=== PATIENT | female | born 1970 | race Caucasian/White ===

== ENCOUNTER 2020-10-29 12:01 | Outpatient (CLI) | payer BC, MEDICAID, SELFPAY ==
[2020-10-29 12:24] LABS: Hemoglobin 12.7 g/dL (12.0-15.0); Mean Corpuscular HGB Conc 31.8 g/dL (32.0-36.0); Mean Corpuscular Hemoglobin 27.4 pg (27.0-31.0); Mean Corpuscular Volume 86.2 fL (78.0-102.0); Mean Platelet Volume 9.9 fl (9.2-11.8); Platelet Count Result 328 K/mm3 (150-420); Red Blood Count 4.64 M/mm3 (4.20-5.40); Red Cell Distribution Width 13.8 % (11.6-14.4); White Blood Count 10.7 K/mm3 (4.8-10.8)
[2020-10-29 13:25] LABS: Alanine Aminotransferase 34 U/L (14-59); Albumin Level 3.6 g/dL (3.4-5.0); Alkaline Phosphatase 142 U/L (46-116); Anion Gap 12 mmol/L (8-16); Aspartate Amino Transferase 19 U/L (15-37); Bilirubin,Total 0.3 mg/dL (0.00-1.00); Blood Urea Nitrogen 18 mg/dL (7-18); Calcium 9.6 mg/dL (8.5-10.1); Carbon Dioxide 26 mmol/L (21-32); Chloride 105 mmol/L (98-108); Cholesterol 169 mg/dL (0-200); Estimated Glomerular Filt Rate > 60; Glucose 159 mg/dL (70-99); HDL Direct 74 mg/dL (40-60); LDL Cholesterol Calculated 82 mg/dL (<130); Osmolality Calculated 300 mOsm/kg (285-295); Potassium 4.4 mmol/L (3.5-5.1); Sodium 143 mmol/L (136-145); Total Protein 6.6 g/dL (6.4-8.2); Triglycerides 66 mg/dL (0-150)
[2020-10-29 13:31] LABS: Thyroid Stimulating Hormone Reflex 0.56 u/IU/mL (0.36-3.74)
== END 2020-10-29 12:02 | disposition home or self-care (01) ==
LOC: CHSLAB 12:09
PROVIDERS: PCP Family Medicine; Visit Provider Family Medicine
DX: E11.9 Type 2 diabetes mellitus without complications (principal); I10 Essential (primary) hypertension
CPT/HCPCS: 36415; 80053; 80061; 84443; 85027

== ENCOUNTER 2020-11-15 07:18 | Outpatient (CLI) | payer BC, MEDICAID, SELFPAY | END 2020-11-15 07:19 | disposition home or self-care (01) | LOC: CHSLAB 07:21 | PROVIDERS: PCP Family Medicine; Visit Provider Family Medicine | DX: E27.1 Primary adrenocortical insufficiency (principal) | CPT/HCPCS: 36415; 82533 ==

== ENCOUNTER 2020-12-05 10:08 | Outpatient (CLI) | payer BC, MEDICAID, SELFPAY ==
--- NOTE | ~2020-12-05 | XR_ITS ---
XR knee RT 3V 12/05/2020 10:31 Indication: Right knee pain after fall Procedure: 3 views right knee Comparison: 05/17/2007. Findings: Severe osteoarthritis of the right knee. No fracture, subluxation or dislocation. Small ann nt effusion. No acute fracture. Impression: 1: Severe osteoarthritis of the right knee. Reviewed, dictated and finalized at location A. Impression: 1: Severe osteoarthritis of the right knee.
== END 2020-12-05 10:09 | disposition home or self-care (01) ==
LOC: CHSLAB 10:11
PROVIDERS: PCP Family Medicine; Visit Provider Nurse Practitioner Family
DX: M25.561 Pain in right knee (principal)
CPT/HCPCS: 73562

== ENCOUNTER 2020-12-10 14:58 | Outpatient (CLI) | payer BC, MEDICAID, SELFPAY ==
--- NOTE | ~2020-12-10 | US_ITS ---
EXAMINATION: US venous doppler LE RT DATE: 12/10/2020 15:30 INDICATION: Right calf pain. TECHNIQUE: Grayscale ultrasound images without and with compression and Doppler ultrasound images of the right lower extremity veins were obtained. COMPARISON: None. FINDINGS: The visualized portions of right common femoral vein, profunda (deep) femoral vein, femoral vein, pop liteal vein, peroneal veins, posterior tibial veins, and greater saphenous vein outflow are patent. IMPRESSION: 1. No deep venous thrombosis. Reviewed, dictated and finalized at location A.
[2020-12-10 15:37] LABS: Hemoglobin A1C 8.1 % (<5.7)
== END 2020-12-10 14:59 | disposition home or self-care (01) ==
LOC: CHSLAB 15:02
PROVIDERS: PCP Family Medicine; Visit Provider Family Medicine
DX: E11.9 Type 2 diabetes mellitus without complications (principal)
CPT/HCPCS: 36415; 83036; 93971

== ENCOUNTER 2021-01-23 07:54 | Outpatient (CLI) | payer BC, MEDICAID, SELFPAY ==
--- NOTE | 2021-01-23 08:01 | ECG_ITS ---
Measurements Intervals [place] Rate: 76 P: 52 RI: 157 QRS: -7 QRSD: 92 T: 54 QT: 360 QTc: 407 Interpretive Statements SINUS RHYTHM VOLTAGE CRITERIA FOR LVH POOR R WAVE PROGRESSION, ANTERIOR LEADS BASELINE WANDER- II, III, AVR, AVL, AVF BORDERLINE ECG Electronically Signed On 01-23-2021 8:20:57 CDT by Ernie Bonilla D.O.
== END 2021-01-23 07:55 | disposition home or self-care (01) ==
PROVIDERS: PCP Family Medicine; Visit Provider Otolaryngology
DX: E78.5 Hyperlipidemia, unspecified (principal); I10 Essential (primary) hypertension
CPT/HCPCS: 93005

== ENCOUNTER 2021-01-25 00:33 | Day surgery (SDC) | payer BC, MEDICAID, SELFPAY ==
[2021-01-18 09:43] VITALS: BMI 57.8
--- NOTE | 2021-01-23 16:36 | PM.IMHP ---
H&P: HPI History of Present Illness Date/Time: 01/23/21 16:36 patient presents for planned surgical procedure no changes in symptoms no change in history Chief Complaint: septal deviation inferior turbinate hypertrophy nasal obstruction nasal congestion left maxillary sinusitis left anterior ethmoidal sinusitis right joseline bullosa Review of Systems Constitutional: Constitutional: Denies fatigue, Denies fever(s) and Denies lethargy Eyes: Eyes: Denies blurry vision and Denies change in vision ENT: Reports as per HPI Cardiovascular: Cardiovascular: Denies chest pain Respiratory: Respiratory: Denies cough Endocrine: Endocrine: Denies fatigue Hematologic/Lymphatic: Hematologic/Lymphatic: Denies easy bleeding, Denies easy bruising and Denies lymphadenopathy Allergic/Immunologic: Allergic/Immunologic: Denies seasonal rhinorrhea [facility] Surgical History Surgical History (Updated 12/10/20 @ 15:03 by Yandy Simpson) H/O knee surgery right History of bariatric surgery Gastric sleeve Social History Social History Years smoked: 1 Smoking status: Former smoker Smoking end date: 04/20/98 Alcohol intake: current Alcohol use details: RARE Substance use: never Substance use type: does not use Spiritual care concerns: No Meds Home Medications and Allergies Home Medications Medication Instructions Recorded Confirmed Type albuterol sulfate 90 mcg/actuation 1 puff INHALATION Q4H PRN 10/29/20 01/18/21 History aerosol inhaler baclofen 10 mg tablet 20 mg PO QID PRN tablet 10/29/20 01/18/21 History erenumab-aooe 140 mg/mL 140 mg SUBCUT MONTHLY 10/29/20 01/18/21 History subcutaneous auto-injector hydrocodone 5 mg-acetaminophen 325 1 tablet PO Q6H PRN 10/29/20 01/18/21 History mg tablet lemborexant 5 mg tablet 5 mg PO QHS 10/29/20 01/18/21 History losartan 25 mg tablet 25 mg PO DAILY 10/29/20 01/18/21 History montelukast 10 mg tablet 10 mg PO HS 10/29/20 01/18/21 History omeprazole 40 mg capsule,delayed 40 mg PO HS 10/29/20 01/18/21 History release simvastatin 10 mg tablet 10 mg PO HS 10/29/20 01/18/21 History sumatriptan succinate 4 mg/0.5 mL 4 mg SUBCUT ONCE PRN 10/29/20 01/18/21 History subcutaneous pen injector theophylline 400 mg 200 mg PO BID tablet 10/29/20 01/18/21 History tablet,extended release 24 hr tramadol 50 mg tablet 50 mg PO QID PRN tablet 10/29/20 01/18/21 History fludrocortisone 0.1 mg tablet 0.05 mg PO DAILY #90 tablet 11/20/20 01/18/21 Rx levothyroxine 50 mcg tablet 50 mcg PO DAILY #90 tablet 11/20/20 01/18/21 Rx hydrocortisone 10 mg tablet See Rx Instructions .ROUTE 12/20/20 01/18/21 Rx .COMPLEX #90 tablet aspirin-caffeine [Brie Back and 2 tablet PO Q6H PRN 01/18/21 01/18/21 History Body] ergocalciferol (vitamin D2) 10 mcg PO DAILY 01/18/21 01/18/21 History [Vitamin D2] potassium chloride 10 meq PO BID 01/18/21 01/18/21 History pregabalin [Lyrica] 150 mg PO BID 01/18/21 01/18/21 History ubrogepant [Ubrelvy] 50 mg PO ONCE PRN 01/18/21 01/18/21 History venlafaxine 300 mg PO DAILY 01/18/21 01/18/21 History Allergies Allergy/AdvReac Type Severity Reaction Status Date / Time cefuroxime [From Ceftin] Allergy Severe Anaphylaxis Verified 01/18/21 09:34 metformin AdvReac Diarrhea Verified 01/18/21 09:34 Exam Const: General: cooperative, healthy appearing, comfortable, well developed and alert HENMT: Head: normal to inspection, normocephalic and atraumatic Ears: hearing grossly normal bilaterally, external ears normal, TM's normal bilaterally and EAC's normal General nose exam: Normal external nose present, Normal nares present, No nasal polyps present, mucous membranes and turbinates abnormal, abnormal septum and Other nasal findings present ( septal deviation inferior turbinate hypertrophy) Face and sinus: normal facial exam Mouth: Yes Normal oral and palatal mucosa present, Yes lip normal, Ye
[2021-01-25] VITALS (11 sets, daily range): BP systolic 138–204; BP diastolic 71–119; PULSE 70–102; RESP 15–20; TEMP 35.9–37.1; O2SAT 91–99
--- NOTE | 2021-01-25 07:06 | WPDHPUPDATE1 ---
History and Physical Update Update Date/Time: 01/25/21 07:06 History and Physical has been reviewed, including an updated exam of the patient. There are NO changes in the patient's condition. Risks, benefits, and alternatives have been discussed and questions answered. Patient agrees to proceed with procedure.
[2021-01-25] MEDS: ACETAMINOPHEN 500 MG TABLET 1000 MG PO (09:12)
[2021-01-25] MEDS: LACTATED RINGERS 1,000 ML 30 ML IV CONT (09:20)
--- NOTE | 2021-01-25 09:43 | WPDANESEPPF ---
Anes - Initial Pre Proc Eval Procedure: Operation Date: 01/25/21 10:30 Proposed Procedures p Image Guided Left Maxillary Antrostomy, Anterior Ethmoidectomy, Bilateral Inferior Turbinectomy with Outfracture, Resection Right Side Olinda Bullosa, - Stephan Gomez MD s Endoscopic Septoplasty - Stephan Gomez MD Date/Time: 01/25/21 09:43 Surgeon: Stephan Gomez MD Pre Op Diagnosis: chronic sinusitis Patient Data Age: 50 Gender: F Height: 1.57 m Weight: 151.4 kg Last Vital Signs Temp 35.9 C L 01/25/21 08:48 Pulse 88 01/25/21 09:00 Resp 20 01/25/21 08:48 BP 165/94 H 01/25/21 09:00 Pulse Ox 99 01/25/21 08:48 Allergies Allergy/AdvReac Type Severity Reaction Status Date / Time cefuroxime [From Ceftin] Allergy Severe Anaphylaxis Verified 01/25/21 09:00 metformin AdvReac Intermediate Diarrhea/Cr Verified 01/25/21 09:00 amping/Naus ea Home Medications Medication Instructions Recorded Confirmed Type albuterol sulfate 90 mcg/actuation 1 puff INHALATION Q4H PRN 10/29/20 01/25/21 History aerosol inhaler baclofen 10 mg tablet 20 mg PO QID PRN tablet 10/29/20 01/25/21 History erenumab-aooe 140 mg/mL 140 mg SUBCUT MONTHLY 10/29/20 01/25/21 History subcutaneous auto-injector hydrocodone 5 mg-acetaminophen 325 1 tablet PO Q6H PRN 10/29/20 01/25/21 History mg tablet lemborexant 5 mg tablet 5 mg PO QHS 10/29/20 01/25/21 History losartan 25 mg tablet 25 mg PO DAILY 10/29/20 01/25/21 History montelukast 10 mg tablet 10 mg PO HS 10/29/20 01/25/21 History omeprazole 40 mg capsule,delayed 40 mg PO HS 10/29/20 01/25/21 History release simvastatin 10 mg tablet 10 mg PO HS 10/29/20 01/25/21 History sumatriptan succinate 4 mg/0.5 mL 4 mg SUBCUT ONCE PRN 10/29/20 01/18/21 History subcutaneous pen injector theophylline 400 mg 200 mg PO BID tablet 10/29/20 01/25/21 History tablet,extended release 24 hr tramadol 50 mg tablet 50 mg PO QID PRN tablet 10/29/20 01/25/21 History fludrocortisone 0.1 mg tablet 0.05 mg PO DAILY #90 tablet 11/20/20 01/25/21 Rx levothyroxine 50 mcg tablet 50 mcg PO DAILY #90 tablet 11/20/20 01/25/21 Rx hydrocortisone 10 mg tablet See Rx Instructions .ROUTE 12/20/20 01/25/21 Rx .COMPLEX #90 tablet aspirin-caffeine [Brie Back and 2 tablet PO Q6H PRN 01/18/21 01/18/21 History Body] ergocalciferol (vitamin D2) 10 mcg PO DAILY 01/18/21 01/25/21 History [Vitamin D2] potassium chloride 10 meq PO BID 01/18/21 01/25/21 History pregabalin [Lyrica] 150 mg PO BID 01/18/21 01/25/21 History ubrogepant [Ubrelvy] 50 mg PO ONCE PRN 01/18/21 01/18/21 History venlafaxine 300 mg PO DAILY 01/18/21 01/25/21 History Patient hx anesthesia problems: none Family hx anesthesia problems: none Results Review: All pre-operative results and documents have been reviewed as part of the pre-operative evaluation. [facility] Past Medical History Medical History (Updated 01/25/21 @ 09:43 by Flaco Escalera MD) [place]'s disease Asthma Chronic back pain Hypertension Hypothyroidism MDD (major depressive disorder) Migraine headache Surgical History Surgical History H/O knee surgery right History of bariatric surgery Gastric sleeve Social History Social History Years smoked: 1 Smoking status: Never smoker Smoking end date: 04/20/98 Alcohol intake: current Alcohol use details: RARE Substance use: never Substance use type: does not use Living arrangements: with family Spiritual care concerns: No Anes - Eval Final PreProcedure Day of Procedure 01/25/21 09:43 Patient weight: super morbidly obese Heart: regular rate and rhythm Lungs: decreased breath sounds Airway: Mallampati scale class II Neurological: alert and oriented Last oral intake: >/= 8 hours ASA classification: III Emergent: no Anesthetic plan: proceed Anesthesia type and monit
[2021-01-25] MEDS: CLINDAMYCIN 900 MG/D5W 50 ML 900 MG/50 ML PIGGYBACK 50 MG IVPB (11:09)
[2021-01-25] MEDS: OXYMETAZOLINE HCL 0.05% NAS 15 ML BTL (*BKC) 1 SPRAY NASAL (11:43)
[2021-01-25] MEDS: LIDO 1%/EPINEPHRINE 1:100,000 50 ML VIAL INFILTRATE (12:25)
--- NOTE | 2021-01-25 12:48 | P.OP_ITS ---
Procedure Note - Detailed Date of Procedure 01/25/21 Pre-op Diagnosis chronic sinusitis, nasal obstruction, nasal congestion, inferior turbinate hypertrophy, septal deviation, right joseline bullosa Post-op Diagnosis same Procedure Performed 1. Endoscopic assisted septoplasty 2. Inferior turbinate submucosal resection with outfracture 3. Left-sided maxillary antrostomy 4. Left-sided anterior ethmoidectomy 5. Right-sided joseline bullosa resection Surgeon Stephan Gomez MD [employer] Intern None Anesthesia general Indications See above Findings Septal deviation, inferior turbinate hypertrophy, right joseline bullosa, left sinuses appeared healthy Description of Procedure The patient was correctly identified and consent was verified in the preoperative holding area. The patient was brought to the operating room and a time-out performed. General anesthesia was induced and endotracheal tube was secured the patient's airway and taped the left lower lip. After the patient was then prepped and draped for the aforementioned procedures. Second time-out performed. Afrin-soaked pledgets were inserted the bilateral nasal passages allowed to sit for 5 minutes. They were then removed. 0 degree endoscope set up. Under endoscopic guidance the bilateral nasal passages reviewed with the aforementioned findings noted. Total 14 cc of 1% lidocaine with 1 100,000 parts epinephrine was injected into the septum in the submucoperichondrial plane, the anterior heads of the inferior turbinates, and the right middle turbinate. Right middle turbinate split in half using a sickle blade the lateral aspect of the joseline was then removed using a combination of microdebrider and straight through cut hemostasis was achieved using Bovie suction electrocautery at a setting of 12. Margarito incision made in the left anterior septum sub mucoperichondrial flap was elevated using a 7 [place] suction perforation noted with no loss of tissue over the septal spur the septum was then crossed using a 15 blade right-sided mucoperichondrial flap was elevated with no perforation. Deviated septum moved combination of Kevon Grady forceps deep blade and Mary forceps. No opposing perforations were noted. The left middle turbinate was then medialized using a [place]. A ball-tip probe placed in the accessory os and used to create a small opening the left maxillary sinus. Maxillary antrostomy completed with microdebrider backbiter and straight through cut. Anterior ethmoidectomy was completed using a [place] and microdebrider. Hemostasis was achieved using intermittent application of Afrin-soaked pledgets. The inferior turbinates were then entered anteriorly using a microdebrider with 2 mm blade. There debrided the submucoperichondrial plane. There were then outfractured using a [place] elevator. Again this was performed bilaterally. [place] tips bilaterally were cauterized using Bovie suction electrocautery at a setting of 12. The bilateral nasal passages were then again examined with no complications noted there were suction to the posterior choana hemostasis was excellent. The Seibert incision was closed using 3 interrupted 5 0 fast gut sutures. Prado splints were then placed and sutured anteriorly using a 3-0 mattressed nylon suture. Total blood loss 20 cc. I performed all dictated portions of the procedure. There were no complications. Care of the patient was turned over to Anesthesiology. Implants Prado splints Estimated Blood Loss 20 Drains No Packing No Pathology none sent Complications No immediate complications Condition stable Disposition PACU
[2021-01-25] MEDS: LABETALOL HCL INJ 100 MG/20 ML VIAL IV PUSH ×2 (12:59→13:26)
[2021-01-25] MEDS: hydrALAZINE HCL 20 MG/ML VIAL 10 MG IV PUSH (13:28)
[2021-01-25] MEDS: oxyCODONE HCL (*CRX) 5 MG TAB IR PO (14:34)
== END 2021-01-25 15:10 | disposition home or self-care (01) ==
PROVIDERS: PCP Family Medicine; Visit Provider Otolaryngology
PROC: (CPT 30520; principal; 2021-01-25 10:30)
PROC: (CPT 30520; 2021-01-25 10:30)
DX: J34.3 Hypertrophy of nasal turbinates (principal); J34.2 Deviated nasal septum; J34.89 Other specified disorders of nose and nasal sinuses; J32.9 Chronic sinusitis, unspecified; R44.8 Other symptoms and signs involving general sensations and perceptions; R51.9 Headache, unspecified; R09.82 Postnasal drip; E03.9 Hypothyroidism, unspecified; Z79.82 Long term (current) use of aspirin; Z79.51 Long term (current) use of inhaled steroids; E27.1 Primary adrenocortical insufficiency; J45.909 Unspecified asthma, uncomplicated; I10 Essential (primary) hypertension; F32.9 Major depressive disorder, single episode, unspecified; E66.01 Morbid (severe) obesity due to excess calories; Z68.44 Body mass index [BMI] 60.0-69.9, adult
CPT/HCPCS: 30520; 30140; 31256; 61782; 31200; 31240; A9270; J0330; J0360; J1100; J2250; J2405; J2704; J3010; J7120

== ENCOUNTER 2021-07-02 09:09 | Outpatient (CLI) | payer BC, SELFPAY ==
--- NOTE | 2021-07-05 12:18 | WPDHOLTEREM ---
Holter/Event Monitor Holter/Event Monitor Date of procedure: 07/02/21 Holter/Event Procedure: 48 Hr Holter Monitor Indications: Tachycardia Conclusion: 1. 48 hour holter monitor on 07/02/21. 2. Underlying rhythm is sinus rhythm. HR range 65-143 bpm; average HR 96 bpm. 3. There are 29 premature supraventricular complexes and 1 supraventricular couplet. No supraventricular tachycardia. 4. There are 2 premature ventricular complexes. No ventricular tachycardia. 5. No sinoatrial or atrioventricular blocks. No significant pauses greater than 2 seconds. 6. Patient reports symptoms of being upset and back pain which demonstrate sinus rhythm, HR range 98-130 bpm.
== END 2021-07-02 09:10 | disposition home or self-care (01) ==
LOC: CHSCARD 09:12
PROVIDERS: PCP Family Medicine; Visit Provider Family Medicine
DX: R00.0 Tachycardia, unspecified (principal)
CPT/HCPCS: 93225; 93226

== ENCOUNTER 2022-10-22 15:00 | Outpatient (CLI) | payer BC, SELFPAY ==
[2022-10-22 15:13] LABS: Basophils Absolute Auto 0.07 K/mm3 (0.00-0.10); Basophils Percent Auto 0.7 % (0.0-1.0); Eosinophils Absolute Auto 0.34 K/mm3 (0.02-0.50); Eosinophils Percent Auto 3.6 % (1.0-6.0); Hematocrit 41.5 % (35.0-49.0); Hemoglobin 12.6 g/dL (12.0-15.0); Immature Granulocyte Absolute 0.01 K/mm3 (0.00-0.00); Immature Granulocyte Percent A 0.1 % (0.0-0.0); Lymphocytes Absolute Auto 3.24 K/mm3 (1.10-4.50); Lymphocytes Percent Auto 34.5 % (18.0-42.0); Mean Corpuscular HGB Conc 30.4 g/dL (32.0-36.0); Mean Corpuscular Hemoglobin 28.6 pg (27.0-31.0); Mean Corpuscular Volume 94.3 fL (78.0-102.0); Mean Platelet Volume 10.6 fl (9.2-11.8); Monocytes Absolute Auto 0.77 K/mm3 (0.10-0.90); Monocytes Percent Auto 8.2 % (2.0-11.0); Neutrophils Percent Auto 52.9 % (50.0-70.0); Platelet Count Result 287 K/mm3 (150-420); White Blood Count 9.4 K/mm3 (4.8-10.8)
== END 2022-10-22 15:01 | disposition home or self-care (01) ==
LOC: CHSLAB 15:02
PROVIDERS: PCP Family Medicine; Visit Provider Family Medicine
DX: I10 Essential (primary) hypertension (principal)
CPT/HCPCS: 36415; 85025

== ENCOUNTER → 2023-03-31 09:09 | Outpatient (CLI) | payer BC, SELFPAY ==
--- NOTE | ~2023-03-31 | CT_ITS ---
EXAMINATION: CT sinus wo con DATE: 03/31/2023 09:27 INDICATION: Chronic sinusitis TECHNIQUE: Computed tomography (CT) of the paranasal sinuses was performed without intravenous contra st. The dose-length product (DLP) was 382.89 mGy-cm. Iterative reconstruction was used. COMPARISON: None FINDINGS: There is normal development and pneumatization of the paranasal sinuses. There are surgical changes in the medial de anda of the maxillary sinuses. The frontal, sphenoid, ethmoid, and maxillary sinuses are clear. The bilateral ostiomeatal complexes are patent. Visualized soft tissues are unrema rkable. IMPRESSION: 1. Postsurgical change, otherwise unremarkable paranasal sinuses. Reviewed, dictated and finalized at location L. LE [employer]ACHINE
== END ==
PROVIDERS: PCP Otolaryngology; Visit Provider Otolaryngology
DX: J32.9 Chronic sinusitis, unspecified (principal)
CPT/HCPCS: 70486

== ENCOUNTER 2023-11-12 07:09 | Outpatient (CLI) | payer BC, SELFPAY ==
[2023-11-12 07:34] LABS: Basophils Absolute Auto 0.09 K/mm3 (0.00-0.10); Basophils Percent Auto 0.9 % (0.0-1.0); Eosinophils Absolute Auto 0.32 K/mm3 (0.02-0.50); Eosinophils Percent Auto 3.4 % (1.0-6.0); Hematocrit 36.6 % (35.0-49.0); Immature Granulocyte Absolute 0.02 K/mm3 (0.00-0.00); Immature Granulocyte Percent A 0.2 % (0.0-0.0); Lymphocytes Absolute Auto 2.61 K/mm3 (1.10-4.50); Lymphocytes Percent Auto 27.5 % (18.0-42.0); Mean Corpuscular HGB Conc 32.8 g/dL (32-36); Mean Corpuscular Hemoglobin 28.7 pg (27.0-31.0); Mean Corpuscular Volume 87.6 fL (78.0-102.0); Mean Platelet Volume 10.1 fl (9.2-11.8); Monocytes Absolute Auto 0.62 K/mm3 (0.10-0.90); Monocytes Percent Auto 6.5 % (2.0-11.0); Neutrophils Absolute Auto 5.82 K/mm3 (1.70-7.20); Neutrophils Percent Auto 61.5 % (50.0-70.0); Platelet Count Result 340 K/mm3 (150-420); Red Blood Count 4.18 M/mm3 (4.20-5.40); Red Cell Distribution Width 13.4 % (11.6-14.4); White Blood Count 9.5 K/mm3 (4.8-10.8)
[2023-11-12 07:41] LABS: Creatinine Urine 258.82 mg/dL (40-278); MALB Creatinine Ratio 6.3 mg/g (0-30); Microalbumin Urine Random 16.5 mg/L
[2023-11-18 10:33] LABS: Vitamin D 1,25 (OH)2 Total 39 pg/mL (18-72); Vitamin D2 1,25 (OH)2 <8 pg/mL; Vitamin D3 1,25 (OH)2 39 pg/mL
[2023-11-23 18:24] LABS: Cortisol Random 9.3 mcg/dL
== END 2023-11-12 07:10 | disposition home or self-care (01) ==
LOC: CHSLAB 07:10
PROVIDERS: PCP Family Medicine; Visit Provider Family Medicine
DX: E11.9 Type 2 diabetes mellitus without complications (principal); I10 Essential (primary) hypertension; E27.1 Primary adrenocortical insufficiency
CPT/HCPCS: 36415; 82043; 82533; 82652; 83036; 85025

== ENCOUNTER 2023-11-30 07:24 | Outpatient (CLI) | payer BC, SELFPAY ==
[2023-11-30 07:37] LABS: Basophils Absolute Auto 0.08 K/mm3 (0.00-0.10); Basophils Percent Auto 0.8 % (0.0-1.0); Eosinophils Absolute Auto 0.32 K/mm3 (0.02-0.50); Eosinophils Percent Auto 3.1 % (1.0-6.0); Hematocrit 38.5 % (35.0-49.0); Hemoglobin 12.3 g/dL (12.0-15.0); Immature Granulocyte Absolute 0.04 K/mm3 (0.00-0.00); Immature Granulocyte Percent A 0.4 % (0.0-0.0); Lymphocytes Percent Auto 28.7 % (18.0-42.0); Mean Corpuscular HGB Conc 31.9 g/dL (32-36); Mean Corpuscular Hemoglobin 28.1 pg (27.0-31.0); Mean Corpuscular Volume 88.1 fL (78.0-102.0); Mean Platelet Volume 10.3 fl (9.2-11.8); Monocytes Absolute Auto 0.74 K/mm3 (0.10-0.90); Monocytes Percent Auto 7.1 % (2.0-11.0); Neutrophils Absolute Auto 6.28 K/mm3 (1.70-7.20); Neutrophils Percent Auto 59.9 % (50.0-70.0); Platelet Count Result 341 K/mm3 (150-420); Red Blood Count 4.37 M/mm3 (4.20-5.40); White Blood Count 10.5 K/mm3 (4.8-10.8)
[2023-11-30 08:25] LABS: Alanine Aminotransferase 21 U/L (14-59); Albumin Level 3.5 g/dL (3.4-5.0); Alkaline Phosphatase 140 U/L (46-116); Anion Gap 11 mmol/L (4-12); Aspartate Amino Transferase 18 U/L (15-37); Bilirubin,Total 0.4 mg/dL (0.00-1.00); Blood Urea Nitrogen 13 mg/dL (7-18); Carbon Dioxide 27 mmol/L (21-32); Chloride 103 mmol/L (98-108); Cholesterol 244 mg/dL (0-200); Estimated Glomerular Filt Rate > 60; Glucose 159 mg/dL (70-99); HDL Direct 56 mg/dL (40-60); LDL Cholesterol Calculated 157 mg/dL (<130); Osmolality Calculated 295 mOsm/kg (285-295); Potassium 3.7 mmol/L (3.5-5.1); Sodium 141 mmol/L (136-145); Total Protein 6.6 g/dL (6.4-8.2); Triglycerides 156 mg/dL (0-150)
[2023-11-30 08:26] LABS: Thyroid Stimulating Hormone Reflex 0.99 u/IU/mL (0.36-3.74)
[2023-12-02 06:03] LABS: Cortisol Random 14.2 mcg/dL
== END 2023-11-30 07:25 | disposition home or self-care (01) ==
LOC: CHSLAB 07:25
PROVIDERS: PCP Family Medicine; Visit Provider Family Medicine
DX: E03.9 Hypothyroidism, unspecified (principal); E27.1 Primary adrenocortical insufficiency; E11.9 Type 2 diabetes mellitus without complications; J45.909 Unspecified asthma, uncomplicated
CPT/HCPCS: 36415; 80053; 80061; 82533; 84443; 85025

== ENCOUNTER 2024-02-18 10:45 | Outpatient (CLI) | payer BC, SELFPAY ==
--- NOTE | ~2024-02-18 | XR_ITS ---
Right ankle Technique: AP, oblique, and lateral views were obtained. Clinical History: Pain Findings: No acute fracture or dislocation is seen. Probable small chronic avulsion fracture at the l ateral malleolar tip. Osseous alignment is anatomic. Ankle mortise and other visualized joint spaces are preserved. Soft tissues are otherwise unremarkable. Impression: No acute abnormality. Plantar calcaneal spur. Reviewed, dictated and finalized at location . Impression: No acute abnormality. Plantar calcaneal spur.
== END 2024-02-18 10:46 | disposition home or self-care (01) ==
PROVIDERS: PCP Family Medicine; Visit Provider Family Medicine
DX: M77.31 Calcaneal spur, right foot (principal); M25.571 Pain in right ankle and joints of right foot
CPT/HCPCS: 73610

== ENCOUNTER 2024-06-30 07:11 | Outpatient (CLI) | payer BC, SELFPAY ==
--- NOTE | ~2024-06-30 | XR_ITS ---
Clinical Indication: Preoperative evaluation PA and lateral views of the chest: Comparison: None Findings: The lungs are clear, without evidence of focal consolidation or pleural effusion. Cardiome diastinal silhouette is within normal limits. Bones and soft tissues are unremarkable, aside from int rathecal neurostimulator. Impression: Clear lungs. Reviewed, dictated and finalized at location . Impression: Clear lungs.
--- NOTE | 2024-06-30 07:25 | ECG_ITS ---
Test Date: 2024-06-30 08:02:42 Measurements Intervals [place] Rate: 64 P: 61 SD: 176 QRS: 36 QRSD: 89 T: 75 QT: 396 QTc: 411 Interpretive Statements SINUS RHYTHM WITH SINUS ARRHYTHMIA NONSPECIFIC T-WAVE ABNORMALITY No previous ECG available for comparison Electronically Signed On 07-01-2024 16:28:04 CDT by Radha Laboy M.D.
[2024-06-30 07:31] LABS: Hematocrit 38.2 % (35.0-49.0); Hemoglobin 12.1 g/dL (12.0-15.0); Mean Corpuscular HGB Conc 31.7 g/dL (32-36); Mean Corpuscular Hemoglobin 27.7 pg (27.0-31.0); Mean Corpuscular Volume 87.4 fL (78.0-102.0); Platelet Count Result 328 K/mm3 (150-420); Red Blood Count 4.37 M/mm3 (4.20-5.40); Red Cell Distribution Width 13.6 % (11.6-14.4); White Blood Count 10.9 K/mm3 (4.8-10.8)
[2024-06-30 07:46] LABS: INR 0.9; Prothrombin Time 10.3 Seconds (9.50-12.1)
[2024-06-30 07:50] LABS: Anion Gap 8 mmol/L (4-12); Blood Urea Nitrogen 23 mg/dL (7-18); Calcium 9.3 mg/dL (8.5-10.1); Carbon Dioxide 28 mmol/L (21-32); Chloride 107 mmol/L (98-108); Estimated Glomerular Filt Rate 57; Glucose 116 mg/dL (70-99); Osmolality Calculated 300 mOsm/kg (285-295); Sodium 143 mmol/L (136-145)
[2024-06-30 10:31] LABS: Hemoglobin A1C 6.8 % (<5.7)
[2024-06-30 12:58] LABS: Add Urine Microscopic? YES; Appearance Urine Clear (Clear); Bilirubin Urine Negative (Negative); Blood Urine Negative (Negative); Color Urine Yellow (Yellow); Glucose Urine UA Negative (Negative); Ketones Urine Negative (Negative); Leukocyte Esterase Ur Trace LEU/UL (Negative); Nitrate Urine Negative (Negative); Protein Urine Trace (Negative); Specific Grav Ur 1.025 (1.010-1.020)
[2024-06-30 13:05] LABS: Squamous Epithelial Cell Urine Few /hpf (Few)
[2024-06-30 13:06] LABS: Bacteria Urine Trace /hpf
== END 2024-06-30 07:12 | disposition home or self-care (01) ==
LOC: CHSLAB 07:12
PROVIDERS: PCP Family Medicine; Visit Provider Neurological Surgery
DX: Z01.818 Encounter for other preprocedural examination (principal); D68.9 Coagulation defect, unspecified; E11.9 Type 2 diabetes mellitus without complications; T85.122A Displacement of implanted electronic neurostimulator of spinal cord electrode (lead), initial encounter; I49.8 Other specified cardiac arrhythmias
CPT/HCPCS: 36415; 71046; 80048; 81001; 83036; 85027; 85610; 93005

== ENCOUNTER 2024-07-20 00:18 | Day surgery (SDC) | payer BC, SELFPAY ==
[2024-06-24 15:48] VITALS: BMI 53.5
--- NOTE | 2024-06-24 15:56 | PC.NURSE ---
Addendum entered by Zack Syed RN 07/11/24 10:35: Patient says no changes since preop interview except is finishing a course of anitbiotics and prednisone that she was given for chest and nasal congestion which was the reasong for rescheduling surgery. Informed patient she is now to be here at 1000 on 07-20-2024 for 1200 surgery. All other instructions are the same and patient acknowledges she has a copy of the instructions below. Original Note: Report to the Outpatient Waiting Room, entrance under the green pavilion located off [facility], at time _0830_ on date _[id number]_. Planned Procedure Time: _1030_.? Time changes happen often and if your time is changed the preop area will call you the afternoon before. - You and your visitor will be asked to self-screen and do not enter if you have any COVID symptoms. Please call surgeon if you need to reschedule. - A mask is optional within the hospital at this time. Patients may have clear liquids (water, carbonated beverages, clear teas, apple juice) until 3 hours prior to surgery with a maximum of 20 ounces. - No food from midnight until time of surgery and no smoking, or chewing tobacco (or any form of nicotine). No chewing gum, candy or mints. Take only the following medications with a SIP of water on the morning of surgery: ___Lyrica, Levothyroxine, Venlafaxine, Hydrocortizone and if needed inhalers and or Tramadol DO NOT STOP ANY OF YOUR OTHER PRESCRIPTION MEDICATIONS PRIOR TO SURGERY EXCEPT THE FOLLOWING Hold all vitamins and supplements for 3 days per anesthesiologist. Medications to discontinue per physician Date to take last dose Please no make-up, nail yoruba, hairspray, perfume, deodorant, or body powder the day of surgery.? No jewelry (including any body piercings) or valuables the day of surgery, leave them at home.? Please take a shower or bath the night before, or the morning of, surgery with an antibacterial soap.? Wear comfortable, loose fitting clothing.? - Jewelry must be removed prior to entering the operating room.? Rings and piercings that are not removed may be cut off. - The hospital will not accept responsibility for valuables.? - Please leave all valuables, including medications, at home the day of surgery. If you are going home after surgery, a licensed bus driver supervisor must drive you home.? - NO public transportation without another adult if you receive anesthesia. - We recommend that an adult stay with you for 24 hours following discharge. - We also recommend that you do not drive, make important decision, drink alcoholic beverages, or take any drugs that were not prescribed by your health care provider for at least 24 hours after your discharge time. Follow any additional instructions given to you from your surgeon. Telephone instructions given to __Deborah__and asked if any additional questions and then verbalized understanding. Patient advised to call surgeon office or pre surgery nurse liaison [phone] if any additional questions.
--- OUTSIDE RECORDS SUMMARY | 2024-07-06 00:40 | XMS_ITS | Clinical Summary ---
Author Organization [facility] Address [facility] [place] [address] Care Team Providers Care Portfolio Manager Name Role Phone GangaAlfredo Primary Care Provider [phone] Allergies Active Allergy Reactions Criticality Noted Date Comments Cefdinir Anaphylaxis High 06/30/2019 Cefuroxime Unknown,Anaphylaxis, Anxiety,Blurred vision,Chest pressure,Diarrhea,Dizziness,Eyes Water & Itch,Headache,Nausea and Vomiting,Palpitations,Shakiness,Shortn ess of Breath,Swelling,Throat swelling High 01/27/2017 Clindamycin Hives,Itching,Rash Low 06/06/2022 Levofloxacin Rash Low 06/30/2019 Azithromycin Palpitations Low 08/25/2019 Medications traMADol 50 MG tabletIndicatio ns:Chronic Pain Take 1 tablet (50 mg total) by mouth every 6 (six) hours as needed. Indications: Chronic Pain 06/17/2019 Active montelukast 10 MG tablet Take 1 tablet (10 mg total) by mouth nightly at bedtime. 06/14/2019 Active levothyroxine 50 MCG tablet Take 1 tablet (50 mcg total) by mouth every morning. 06/14/2019 Active EPINEPHrine 0.3 MG/0.3ML injection Inject 0.3 mLs (0.3 mg total) into the muscle as needed. 4 09/06/2018 Active potassium chloride CR 10 MEQ tablet Take 1 tablet (10 mEq total) by mouth 2 (two) times daily. Active omeprazole 40 MG capsule Take 1 capsule (40 mg total) by mouth daily. 07/09/2019 Active venlafaxine XR 150 MG 24 hr capsule Take 1 capsule (150 mg total) by mouth 2 (two) times a day. 09/10/2019 Active Cholecalciferol (VITAMIN D3) 50 MCG (2000 UT) Tab Take 1 tablet (50 mcg total) by mouth 3 (three) times a day. Active hydrocortisone (CORTEF) 10 MG tablet Take 3 tablets (30 mg total) by mouth daily. 07/14/2022 Active fluticasone furoate-vilante rol (BREO ELLIPTA) 100-25 MCG/ACT inhaler Inhale 1 puff into the lungs daily. Active losartan-hydroC HLOROthiazide (HYZAAR) 50-12.5 MG tablet Take 0.5 tablets by mouth daily. 08/26/2022 Active cyclobenzaprine (FLEXERIL) 10 MG tablet 1 tablet (10 mg total). 09/07/2023 Active pregabalin (LYRICA) 150 MG capsule Take 1 capsule (150 mg total) by mouth daily. 11/10/2023 Active atorvastatin (LIPITOR) 40 MG tablet Take 1 tablet (40 mg total) by mouth daily. Active celecoxib (CELEBREX) 200 MG capsule Take 1 capsule (200 mg total) by mouth daily. Active TRULICITY 0.75 MG/0.5ML injection Inject 0.75 mg into the skin once a week. Active Active Problems Problem Noted Date Diagnosed Date Right shoulder pain 07/30/2022 Osteoarthritis of right glenohumeral joint 06/02 Traumatic hematoma of right knee, initial encoun ter 03/21/2022 Shoulder impingement 10/24/2021 Superficial incisional infection of surgical sit e 08/20/2021 Cubital tunnel syndrome on right 07/30/2021 Carpal tunnel syndrome, unspecified laterality 0 07/30/2021 Primary osteoarthritis of right knee 01/02/2021 Primary osteoarthritis of left knee 01/02/2021 Pneumonia 06/06/2020 Encounter for post surgical wound check 11/24/19 20 Dorsalgia 05/12/2019 Lumbar radiculopathy 05/12/2019 Encounters Date Type Department Care Team Description 04/15/2024 Telephone [facility] [address] [id number] Moisés Bone MD Refill Request (Faxed order for Celebrex) 2024 Orders Only [facility] [address] [facility] [address] [id number] Sarina Johansen, FEATHEREDGER AND REDUCER MACHINE- from Last 3 Months Family History Medical History Relation Comments No Known Problems Brother 1 No Known Problems Brother 2 Stroke Father Heart Attack Maternal Grandfather Stroke Maternal Grandmother Diabetes Mother Heart Attack Mother Ovarian Cancer Mother Heart Paternal Grandfather Heart Attack Paternal Grandfather Hypertension Paternal Grandfather Cancer Paternal Grandmother Relation Status Comments Brother 1 Alive Brother 2 Alive Father Maternal Grandfather Maternal Grandmother Mother Paternal Grandfather Paternal Grandmother Social History Tobacco Use Types Packs/Day Years Used Date Smoking Tobacco: Former Cigarettes 0.3 2 2 000 - 2002 Smokeless Tobacco: Never Alcohol Use Standard Drinks/Week Comments Yes 0 (1 standard drink = 0.6 oz pur e alcohol) socially Comments No Sex and Gender Information Value Date Recorded Sex Assigned at Not on file Legal Sex Female 9:35 PM CDT Gender Identity Female 05/28/2021 5:00 AM ORAL SURGERY ASSISTANT Sexual Orientation Straight 04/30/2021 9: 48 AM ORAL SURGERY ASSISTANT Last Filed Vital Signs Vital Sign Reading Time Taken Comments Blood Pressure 126/90 10/16/2023 6:12 AM CDT Pulse 99 10/16/2023 6:12 AM CDT Temperature 37.8 C (100.1 F) 10/16/2023 6:12 AM CDT Respiratory Rate 18 10/16/2023 6:12 AM CDT Oxygen Saturation 97% 10/16/2023 6:12 AM CDT Inhaled Oxygen Concentration - - Weight 135.2 kg (298 lb) 02/03/2024 1:51 PM CDT Height 157.5 cm (5' 2 ) 02/03/2024 1:51 PM CDT Body Mass Index 54.5 02/03/2024 1:51 PM CDT Plan of Treatment Health Maintenance Due Date Last Done Comments Colorectal Cancer Screening Colonoscopy (10 Years) 1971 Annual Physical 1974 Hepatitis C 1989 Hepatitis B Vaccines (1 of 3 - 19+ 3-dose series) 1990 Cervical Cancer Screening Pa p with HPV Testing (Age 30 to 64) Every 5 Years 2001 Mammogram Screening 03/24/2021 03/24/2019 Zoster Vaccines (1 of 2) 2021 Cervical Cancer Screening Pa p Smear (Age 30 to 64) Every 3 Years 06/26/2023 06/25/2020 Cervical Cancer Screening wi th HPV 06/26/2023 COVID-19 Vaccine (1 - 2023-2 5 season) 2023 Influenza Adult (#1) 2024 12/30/2018, 02/17/2018, 05/08/2015 DTaP, Tdap and Td Vaccines ( 2 - Td or Tdap) 04/12/2026 04/12/2016, 01/18/2010 Pneumococcal Vaccine: Pediatrics (0 to 5 Years) and At-Risk Patients (6 to 64 Years) Aged Out 05/30/2014 No longer eligible b ased on patient's age to complete this topic Meningococcal B Vaccine Aged Out No l onger eligible based on patient's age to complete this topic Meningococcal Vaccine Aged Out No rick kelley eligible based on patient's age to complete this topic RSV Immunizations Under 20 Months Aged Out No longer eligible b ased on patient's age to complete this topic Medical Devices Implanted Type Area Hedis Registered Nurse Rn Device Identifier Shelf Expiration Date Model / Serial / Lot Stimulator Lead-07/04/2022 Implanted:Qty: 2 on 07/04/2022 Lead Implant Spine Thoracic [employer] C[employer] RHYTHM AND HEART FAILURE - DIV M [id number] / / Description:2 LEADS Stimulator Implant- [id number] Implanted:Qty: 1 on 07/04/2022 Stimulator Implant [employer] CARDI[employer] RHYTHM AND HEART FAILURE - DIV M [id number] / [id number] / Description:MR Conditional a t 1.5 T only, Should be full body eligible but need remote to check, need remote to turn off stimulation, Normal DELROY, Max 30 minutes scan time in 90 minute window Explanted Type Area Hedis Registered Nurse Rn Device Identifier Shelf Expiration Date Model / Serial / Lot Bur Vortex 6.0mm - [id number] Explanted:Qty: 1 on 09/21/2019 at [facility] AQH [id number] / / Procedures Procedure Name Priority Date/Time Associated Diagnosis Comments CYTOPATH CERV/VAG THIN LAYER Routine 06/25/2020 1:36 PM ORAL SURGERY ASSISTANT MG SCREENING W GUILLERMO RIO DIGI Routine 03/24/2019 9:16 AM ORAL SURGERY ASSISTANT Screening for breast cancer from Last 3 Months or Most Recently Relevant to Health Maintenance Results * Cytopath Cerv/Vag Thin Layer (06/25/2020 1:36 PM ORAL SURGERY ASSISTANT) THIN PREP PAP [address] [address] Department of Pathology Pathology Report CERVICAL/VAGINAL PAP SMEAR REPORT Name: RORO BA Age: 12 1970 (Age: 50) Location: [facility] Sex: F Collected Date: 06/25/2020 Hospital #: [id number] Date Received: 06/27/2020 Date Reported: 07/02/2020 Provider: VASYL MCGINNIS INTERPRETATION CERVICAL/ENDOCERVICA L: SATISFACTORY FOR EVALUATION. ENDOCERVICAL/TRANSFO RMATION ZONE COMPONENT ABSENT. NEGATIVE FOR INTRAEPITHELIAL LESION OR MALIGNANCY. NEGATIVE FOR HIGH RISK HPV. The FDA approved Aptima HPV assay is an in vitro nucleic acid amplification test for the qualitative detection of E6/E7 viral messenger RNA (mRNA) from 14 high-risk types of human papillomavirus (HPV) in cervical specimens. The high-risk HPV types detected by the assay include: 16,18,31,33,35,39,45 ,51,52,56,58,59,66, and 68. Electronically Signed Out By TIFFANI French (ASCP) CLINICAL HISTORY Z12.4 SCREENING ABNORMAL/POST MENOPAUSAL BLEEDING PAP AND MANAGER DESKTOP SURGICAL HISTORY - UNKNOWN ThinPrep Pap Test with screening HR HPV testing requested, with reflex HPV 16/18 genotyping on negative cytology, positive HR HPV Date of Last Menstrual Period: UNKNOWN SPECIMEN SUBMITTED CERVICAL/ENDOCERVICA L Specimen Received:1 Thin Prep Vial, Image Assisted Pap (SMD) Please note: The Pap smear is not a diagnostic test. It is a screening test. Negative results on combined screening (Pap test and HPV-DNA) have a high negative predictive value (99.1-100 percent) for cervical cancer. The pap test is not effective in detecting cervical adenocarcinoma. [facility] 06/25/2020 1:36 PM ORAL SURGERY ASSISTANT 06/27/2020 1:36 PM ORAL SURGERY ASSISTANT Comment:CERVICAL/ENDOCERVICA L Vasyl Coto MD PATHOLOGY/CYTOLOGY ORDERABLES Final Result [facility] [address] [place] [address], [place] [phone] [id number] [facility] [address] [place] [address], [place] [phone] * MG SCREENING W GUILLERMO RIO DIGI (03/24/2019 9:16 AM ORAL SURGERY ASSISTANT) Anatomical Region Laterality Modality Breast Bilateral Mammography 03/28/2019 2:57 PM ORAL SURGERY ASSISTANT Impressions 03/28/2019 2:58 PM ORAL SURGERY ASSISTANT IMPRESSION: Moderately dense breasts. No mammographic evidence of malignancy. Recommendation: 1: Routine screening mammogram Bilateral in 1 Year Assessment: ACR BI-RADS Category 2 - Benign. Interpreted By: Harish Hernandez, 03/28/2019 2:57 PM Narrative 03/28/2019 2:58 PM ORAL SURGERY ASSISTANT Examination: Digital screening mammogram with CAD. Clinical history: Asymptomatic patient presents for routine screening. Baseline. Comparison: None. Technique: Bilateral digital mammograms. The exam was interpreted with the use of a computer-aided detection (CAD) system. Additional 3-D tomosynthesis images were acquired. Tissue density: The breast tissue is heterogeneously dense. Findings: The breast tissue is heterogeneously dense. The dense tissue may obscure some lesions mammographically. Minor glandular asymmetry is noted. Benign-appearing calcification noted. No suspicious mass, microcalcification or area of architectural distortion can be identified. From a mammographic standpoint, routine followup in one year would seem adequate. Sg Ferraro MD MAMMO Final Result from Last 3 Months or Most Recently Relevant to Health Maintenance Insurance Advance Directives * Full Code (Latest Code Status on File) Date Activated Date Inactivated Comments 06/06/2020 2:31 PM 06/08/2020 6:23 PM Care Teams Portfolio Manager Relationship Specialty Start Date End Date Alfredo Schuler DO [address] [place] [address] PCP - General FAMILY PRACTICE 01/02/21
--- OUTSIDE RECORDS SUMMARY | 2024-07-06 00:40 | XMS_ITS | Encounter Summary ---
Author Organization [facility] Address [facility] [place] [address] Care Team Providers Care Wire Loop Machine Operator Name Role Phone Sg Ferraro MD Primary Care Provider [phone] Alfredo Schuler DO Primary Care Provider [phone] Encounter Details Date Type Department Care Team (Late st Contact Info) Description 09/25/2018 Abstract [facility] CONVERSION [address] [id number] , Generic Conversion, Social History Tobacco Use Types Packs/Day Years Used Date Smoking Tobacco: Never Assessed Comments Unknown Sex and Gender Information Value Date Recorded Sex Assigned at Not on file Legal Sex Female 9:35 PM CDT Gender Identity Female 05/28/2021 5:00 AM FOOD COOKING MACHINE OPERATOR Sexual Orientation Straight 04/30/2021 9: 48 AM FOOD COOKING MACHINE OPERATOR documented as of this encounter Plan of Treatment Not on file documented as of this encounter Visit Diagnoses Not on filedocumented in this encounter Additional Health Concerns Infection Onset Date Last Indicated Resolved Time COVID-19 Rule Out 09/19/2019 09/19/2019 09/20/2019 4:26 AM CDT COVID-19 Rule Out 05/18/2020 05/18/2020 05/18/2020 2:56 PM FOOD COOKING MACHINE OPERATOR COVID-19 Confirmed Comment:Patients meets criteria for removal of isolation. IP discussed with Dr. Calloway. (SB) 05/18/2020 05/18/2020 06/08/2020 7:56 AM FOOD COOKING MACHINE OPERATOR COVID-19 Rule Out 02/21/2021 02/21/2021 02/21/2021 7:07 PM CDT COVID-19 Rule Out 08/05/2021 08/05/2021 08/06/2021 7:22 PM CDT COVID-19 Rule Out 01/02/2022 01/02/2022 01/02/2022 8:17 PM CDT documented as of this encounter Care Teams Wire Loop Machine Operator Relationship Specialty Start Date End Date Sg Ferraro MD PCP - General INTERNAL MEDICINE 06/08/18 01/01/21 Alfredo Schuler DO [address] [place] [address] PCP - General FAMILY PRACTICE 01/02/21 documented as of this encounter
--- OUTSIDE RECORDS SUMMARY | 2024-07-06 00:40 | XMS_ITS | Encounter Summary ---
Author Organization [facility] Address [facility] [place] [address] Care Team Providers Care Steam Pan Sponger Name Role Phone Sg Ferraro MD Primary Care Provider [phone] Alfredo Schuler DO Primary Care Provider Encounter Details Date Type Department Care Team (Late st Contact Info) Description 06/11/2020 Hospital Follow-up Call [facility] [address] [place], [place] [id number] Eusebia العراقي RN Social History Tobacco Use Types Packs/Day Years Used Date Smoking Tobacco: Former Cigarettes 0.3 2 2 000 - 2002 Smokeless Tobacco: Never Alcohol Use Standard Drinks/Week Comments Yes 0 (1 standard drink = 0.6 oz pur e alcohol) socially Comments Unknown Sex and Gender Information Value Date Recorded Sex Assigned at Not on file Legal Sex Female 9:35 PM CDT Gender Identity Female 05/28/2021 5:00 AM UNDERCOATER Sexual Orientation Straight 04/30/2021 9: 48 AM UNDERCOATER COVID-19 Exposure Response Date Recorded In the last month, have you been in contact with someone who was confirmed or suspected to have Coronavirus / COVID-19? No / Unsure 06/06/2020 1:43 PM UNDERCOATER documented as of this encounter Functional Status * RETIRED Are you deaf or do you have serious difficulty hearing Answer Date of Assessment Author Status No 06/06/2020 2:18 PM UNDERCOATER Activ e * RETIRED Are you blind or do you have serious difficulty seeing, even when wearing glasses? Answer Date of Assessment Author Status No 06/06/2020 2:18 PM UNDERCOATER Activ e * Do you have serious difficulty walking or climbing stairs? Answer Date of Assessment Author Status No 06/06/2020 2:18 PM UNDERCOATER Bhavna Osborn RN Active * Do you have difficulty dressing or bathing? Answer Date of Assessment Author Status No 06/06/2020 2:18 PM Bhavna Stout RN Active * Because of a physical, mental, or emotional condition, do you have difficulty doing errands alone such as visiting a doctor's office or shopping? Answer Date of Assessment Author Status No 06/06/2020 2:18 PM Bhavna Stout RN Active documented as of this encounter Mental Status * Because of a physical, mental, or emotional condition, do you have serious difficulty concentrating, remembering, or making decisions? Answer Entry Date Author Status No 06/06/2020 2:18 PM Bhavna Stout RN Active documented in this encounter Plan of Treatment Not on file documented as of this encounter Visit Diagnoses Not on filedocumented in this encounter Additional Health Concerns Infection Onset Date Last Indicated Resolved Time COVID-19 Rule Out 02/21/2021 02/21/2021 02/21/2021 7:07 PM CDT COVID-19 Rule Out 08/05/2021 08/05/2021 08/06/2021 7:22 PM CDT COVID-19 Rule Out 01/02/2022 01/02/2022 01/02/2022 8:17 PM CDT documented as of this encounter Care Teams Steam Pan Sponger Relationship Specialty Start Date End Date Sg Ferraro MD PCP - General INTERNAL MEDICINE 06/08/18 01/01/21 Alfredo Schuler DO [address] [place] [address] PCP - General FAMILY PRACTICE 01/02/21 documented as of this encounter
--- OUTSIDE RECORDS SUMMARY | 2024-07-06 00:40 | XMS_ITS | Encounter Summary ---
Author Organization [facility] Address [facility] [place] [address] Care Team Providers Care Visual Presentation Manager Name Role Phone RekhaAlfredo torres Primary Care Provider [phone] Encounter Details Date Type Department Care Team (Late st Contact Info) Description 09/23/2022 [employer] Message Enc [facility] [place] [address] Terrell Lees MD [address] [place] [address] Visit Follow Up Social History Tobacco Use Types Packs/Day Years [...] CDT Gender Identity Female 05/28/2021 5:00 AM ECOTHERAPIST Sexual Orientation Straight 04/30/2021 9: 48 AM ECOTHERAPIST COVID-19 Exposure Response Date Recorded In the last 10 days, have yo u been in contact with someone who was confirmed or suspected to have Coronavirus/COVID-19? No / Unsure 09/23/2022 8:30 AM CDT documented as of this encounter Functional Status * RETIRED Are you deaf or do you have serious difficulty hearing Answer Date of Assessment Author Status No 06/06/2020 2:18 PM ECOTHERAPIST Activ e * RETIRED Are you blind or do you have serious difficulty seeing, even when wearing glasses? Answer Date of Assessment Author Status No 06/06/2020 2:18 PM ECOTHERAPIST Activ e * Do you have serious difficulty walking or climbing stairs? Answer Date of Assessment Author Status No 06/06/2020 2:18 PM Bhavna Stout RN Active * Do you have difficulty dressing or bathing? Answer Date of Assessment Author Status No 06/06/2020 2:18 PM Bhavna Stuot RN Active * Because of a physical, [...] Diagnoses Not on filedocumented in this encounter Care Teams Visual Presentation Manager Relationship Specialty Start Date End Date Alfredo Schuler [place] [facility] [place] [address] [place] [address] PCP - General FAMILY PRACTICE 01/02/21 documented as of this encounter
--- OUTSIDE RECORDS SUMMARY | 2024-07-06 00:40 | XMS_ITS | Encounter Summary ---
Author Organization [facility] Address [facility] [place] [address] Care Team Providers Care Director Public Name Role Phone Sg Ferraro MD Primary Care Provider [phone] Alfredo Schuler DO Primary Care Provider Encounter Details Date Type Department Care Team (Late st Contact Info) Description 06/11/2020 Hospital Follow-up Call [facility] [address] [place], [place] [phone] Eusebia العراقي RN Social History Tobacco Use [...] CDT Gender Identity Female 05/28/2021 5:00 AM SALESPERSON ART OBJECTS Sexual Orientation Straight 04/30/2021 9: 48 AM SALESPERSON ART OBJECTS COVID-19 Exposure Response Date Recorded In the last month, have you been in contact with someone who was confirmed or suspected to have Coronavirus / COVID-19? No / Unsure 06/06/2020 1:43 PM SALESPERSON ART OBJECTS documented as of this encounter Functional Status * RETIRED Are you deaf or do you have serious difficulty hearing Answer Date of Assessment Author Status No 06/06/2020 2:18 PM SALESPERSON ART OBJECTS Activ e * RETIRED Are you blind or do you have serious difficulty seeing, even when wearing glasses? Answer Date of Assessment Author Status No 06/06/2020 2:18 PM SALESPERSON ART OBJECTS Activ e * Do you have serious difficulty walking or climbing stairs? Answer Date of Assessment Author Status No 06/06/2020 2:18 PM SALESPERSON ART OBJECTS Bhavna Osborn RN Active * Do you [...] documented as of this encounter Care Teams Director Public Relationship Specialty Start Date End Date Sg Ferraro MD PCP - General INTERNAL MEDICINE 06/08/18 01/01/21 Alfredo Schuler DO [address] [place] [address] PCP - General FAMILY PRACTICE 01/02/21 documented as of this encounter
--- OUTSIDE RECORDS SUMMARY | 2024-07-06 00:41 | XMS_ITS | Encounter Summary ---
Author Organization [facility] Address [facility] [place] [address] Care Team Providers Care Treasury Director Name Role Phone RekhaAlfredo torres Primary Care Provider Encounter Details Date Type Department Care Team (Late st Contact Info) Description 11/25/2023 [employer] Message Enc [address] [phone] Moisés Bone MD [address] [place] [address] Visit Follow Up Social History Tobacco Use [...] CDT Gender Identity Female 05/28/2021 5:00 AM COKEMAN Sexual Orientation Straight 04/30/2021 9: 48 AM COKEMAN documented as of this encounter Functional Status * RETIRED Are you deaf or do you have serious difficulty hearing Answer Date of Assessment Author Status No 06/06/2020 2:18 PM COKEMAN Activ e * RETIRED Are you blind or do you have serious difficulty seeing, even when wearing glasses? Answer Date of Assessment Author Status No 06/06/2020 2:18 PM COKEMAN Activ e * Do you have serious [...] on filedocumented in this encounter Care Teams Treasury Director Relationship Specialty Start Date End Date Alfredo Schuler DO [facility] [place] [address] PCP - General FAMILY PRACTICE 01/02/21 documented as of this encounter
--- OUTSIDE RECORDS SUMMARY | 2024-07-06 00:41 | XMS_ITS | Data Portability ---
Author Organization [facility] CLI BRIANA P, [address] [facility] ([place]) Address [address] [place] [address] Care Team Providers Care Winery Worker Name Role Phone VIJAY CHAVEZ Primary Care Provider Assessment No assessment recorded. Plan of Treatment Reminders Order Date Submit Date Provider Last Modified By Organization Details Last Modified Time Details Appointments Establish ed Patient 20.EST 2024 11:00A M Dr. Brenda Gonsalez Not available Not available Not available Lab None recorded. Referral None recorded. Procedures None recorded. Surgeries None recorded. Imaging None recorded. Medication Orders None recorded. Patient TargetsNo targets recorded. Patient InstructionsNo instructions recorded. Reason for Referral None Reported. Problems Name Problem SNOMED Code Status Onset Date Resolution Date Notes Provider Name and Address Organization Details Recorded Time Hypertensive disorder 66433818 Active 2023 Brenda Gonsalez MD [address] [place] [address], [phone], [facility] 4 10:18:47 Fatigue 25987069 Active 2023 Brenda Gonsalez MD [address] [place] [address], [phone], [facility] 4 10:30:34 Asthma 677581879 Active 2023 Cresencio Collins [facility] 4 12:14:04 Problem Notes None recorded. Procedures Surgical History Date Name Laterality Status Provider Name and Address Organization Details Recorded Time Removal of gallbladder completed Not Available Health Note 01/20/2024 09:59:53 Imaging Results None recorded. Procedure Notes None recorded. Medical Equipment None Reported. Allergies Allergen ID Allergen Name Allergen Category Reaction Reaction Severity Criticality Documentation Date Start Date Code Code System Note Provider Name and Address Organization Details Recorded Time 157643 Ceftin medicatio n Not available Not available Not available 05/18/20232018 94822 6 RxNorm Not Available Not Available Not Available Medications Name Sig Start Date Stop Date Status Note LastModified by Organization Details LastModified Time celecoxib 200 mg capsule active Not Available Not Available Not Available cyclobenzapr ine 10 mg tablet active Not Available Not Available Not Available atorvastatin 40 mg tablet active Not Available Not Available Not Available prednisone 10 mg tablet active Not Available Not Available Not Available ipratropium 0.5 mg-albuterol 3 mg (2.5 mg base)/3 mL nebulization soln Inhale 3 mL 4 times a day by nebulizatio n route as needed. active Not Available Not Available No t Available azithromycin 250 mg tablet active Not Available Not Available Not Available prednisone 20 mg tablet active Not Available Not Available Not Available venlafaxine ER 150 mg capsule,exte nded release 24 hr active Not Available Not Available Not Available potassium chloride ER 10 mEq tablet,exten ded release active Not Available Not Available Not Available omeprazole 40 mg capsule,ángel yed release active Not Available Not Available Not Available tramadol 50 mg tablet active Not Available Not Available No t Available levothyroxin e 50 mcg tablet active Not Available Not Available Not Available montelukast 10 mg tablet active Not Available Not Available Not Available hydrocortiso ne 10 mg tablet active Not Available Not Available Not Available albuterol sulfate HFA 90 mcg/actuatio n aerosol inhaler Inhale 2 puffs every 4 hours by inhalation route. 2024 active Not Available Not Available Not Avai lable losartan 50 mg-hydrochlo rothiazide 12.5 mg tablet active Not Available Not Available Not Available ipratropium bromide 21 mcg (0.03 %) nasal spray active Not Available Not Available Not Available amoxicillin 875 mg-potassium clavulanate 125 mg tablet TAKE 1 TABLET BY MOUTH TWICE DAILY FOR 10 DAYS active Not Available Not Available No t Available pregabalin 150 mg capsule active Not Available Not Available Not Available ipratropium 0.5 mg-albuterol 2.5 mg/2.5 mL solution for nebulization Inhale 3 mL 4 times a day by inhalation route as needed. active Not Available Not Available No t Available Trulicity 0.75 mg/0.5 mL subcutaneous pen injector ADMINISTER 0.75 MG UNDER THE SKIN WEEKLY active Not Available Not Available Not Available Breo Ellipta 200 mcg-25 mcg/dose powder for inhalation Inhale 1 puff every day by inhalation route as directed. active Not Available Not Available No t Available Vitals Date Recorded Body height Body mass index (BMI) Body weight Body temperature Heart rate Respiratory rate Oxygen saturation Oxygen saturation in Arterial blood by Pulse oximetry Systolic blood pressure Diastolic blood pressure Provider Name and Address Organization Details Last Updated DateTime 157.48 cm 57.8 kg/m2 560395. 19 g 97.5 [degF] 117 /min 18 /min 97 % 97 % 159 mm[Hg] 122 mm[Hg] Cresencio Collins [facility] 10:14:27 Social History Question Answer Notes LastModified by Organizat ion Details LastModified Time Tobacco Smoking Status Former Smoker Not Available Health Note 01/20/2024 09:59:53 Do You Have An Advance Directive? No [email or web address] Information not available 01/20/2024 What Is Your Level Of Alcohol Consumption? Occasional [email or web address] Information not available 01/20/2024 How Many Times Per Week Do You Consume Alcohol? Less Than 1 Time Per Week [email or web address] Information not available 01/20/2024 What Is Your Level Of Caffeine Consumption? Heavy [email or web address] Information not available 01/20/2024 Are You Currently Employed? Yes [email or web address] Information not available 01/20/2024 What Is Your Occupation? [employer] [email or web address] Information not available 01/20/2024 How Many Times Per Week Do You Exercise? 1-2 Times Per Week [email or web address] Information not available 01/20/2024 How Many Packs Per Day (PPD)? 1 Information not available 01/26/2024 How Long Have You Smoked? 1 Year Information not available 01/26/2024 When Did You Quit Smoking? 2001 [email or web address] Information not available 01/20/2024 Do You Have A Medical Power Of Clerical Receptionist? No [email or web address] Information not available 01/20/2024 What Was The Date Of Your Most Recent Tobacco Screening? 01/26/2024 [email or web address] Information not available 01/20/2024 What Is Your Relationship Status? [email or web address] Information not available 01/20/2024 Do You Use Any Illicit Or Recreational Drugs? No [email or web address] Information not available 01/20/2024 Sex: Unknown Functional Status Question Answer Note LastModified by Organizat ion Details LastModified Time What is your exercise level? Occasional [email or web address] Information not available 01/20/2024 Mental Status None recorded. Family History Relationship Description Onset Age of this Age Resolved Age Notes LastModified by Organization Details LastModified Time Mother Arthritis [email or web address] Not available 01/20/2024 09:59:52 Mother Asthma [email or web address] Not available 09:59:52 Mother Chronic obstructive pulmonary disease [email or web address] Not available 2023 09:59:52 Mother Diabetes mellitus [email or web address] Not available 2023 09:59:52 Mother Heart disease [email or web address] Not available 2023 09:59:52 Mother Hypertensive disorder [email or web address] Not available 2023 09:59:52 Mother Hypercholest erolemia [email or web address] Not available 2023 09:59:52 Mother Kidney disease [email or web address] Not available 2023 09:59:52 Mother Osteoporosis [email or web address] Not availa ble 01/20/2024 09:59:52 Maternal Grandfather Arthritis [email or web address] Not available 05/2023 09:59:52 Maternal Grandfather Heart disease [email or web address] Not available 2023 09:59:52 Maternal Grandfather Hypertensive disorder [email or web address] Not available 2023 09:59:52 Maternal Grandfather Hypercholest erolemia [email or web address] Not available 2023 09:59:52 Maternal Grandfather Osteoporosis [email or web address] Not available 1 09:59:52 Paternal Grandfather Arthritis [email or web address] Not available 05/2023 09:59:52 Paternal Grandfather Heart disease [email or web address] Not available 2023 09:59:52 Paternal Grandfather Hypertensive disorder [email or web address] Not available 2023 09:59:52 Paternal Grandfather Hypercholest erolemia [email or web address] Not available 2023 09:59:52 Father Hypertensive disorder [email or web address] Not available 2023 09:59:52 Father Hypercholest erolemia [email or web address] Not available 2023 09:59:52 Father Cerebrovascu lar accident [email or web address] Not available 05/2023 09:59:52 Brother Hypertensive disorder [email or web address] Not available 2023 09:59:52 Brother Hypercholest erolemia [email or web address] Not available 2023 09:59:52 Maternal Grandmother Hypertensive disorder [email or web address] Not available 2023 09:59:52 Maternal Grandmother Hypercholest erolemia [email or web address] Not available 2023 09:59:52 Maternal Grandmother Osteoporosis [email or web address] Not available 1 09:59:52 Paternal Grandmother Hypertensive disorder [email or web address] Not available 2023 09:59:52 Paternal Grandmother Hypercholest erolemia [email or web address] Not available 2023 09:59:52 Unspecified Relation Disorder of thyroid gland [email or web address] Not available 2023 09:59:52 Medical History Condition Response High Blood Pressure Y COPD N Depression Y Anxiety Disorder Y Arthritis N Cancer N Stroke N Fibromyalgia Y Kidney Disease N Attention-deficit Hyperactivity Disorder N Thyroid Problems Y Anemia N Diabetes N Bleeding Disorder N Hyperlipidemia N Asthma Y Seizures N Heart Disease N Osteoporosis N Gynecological HistoryNo gynecological history recorded. Obstetrics History GPAL:G 0 P 0 0 0 0 Past Encounters Encounter ID Performer Location Encounter Start Date Encounter Closed Date Diagnosis/Indication Diagnosis SNOMED-CT Code Diagnosis ICD10 Code Diagnosis Note [id number] Brenda Gonsalez MD [facility] ([place]) [address] [place] [address] 01/26/2024 10:09:58 01/26/2024 11:34:14 Asthma 516811688 J45.909 On a combinatio n of Breo 200/25 with DuoNebs as needed. Respirator y symptoms are pretty well-contr olled, but she is needing her neb treatment about twice a day right now due to the fall allergies. Will not make any medication changes for her right now and she was instructed that she can increase the frequency of DuoNebs if she needs it from a symptom perspectiv e. Reminded her to rinse her mouth out with the Breo inhaler. Hypertensive disorder 38 497347 I10 Blood pressure significan tly elevated at 159/122. The patient took 12.5 mg of losartan a little later than she usually does. I have instructed her to take the other half of the pill when she gets home and call her PCP for blood pressure check. She is asymptomat ic at this time, but she was instructed to go to the ER immediatel y if she has any shortness of breath, headache, visual changes, dizziness, chest pain. Fatigue 74808631 R53.83 Patient has a longstandi ng fatigue with chronic sleep disturbanc es and uncontroll ed blood pressure. I have a high suspicion for underlying sleep apnea and we will get her set up with a split-nigh t sleep study, and trial of PAP if positive. Will get this arranged through [facility]. Health Concerns Section Related Observation LastModified by Organization Detai ls LastModified Time None Recorded Concern Status LastModified by Organization Details LastModified Time None Recorded Advance Directives Directive N: Payers Encounter Date Sequence Insurance Name Policy Number Policy Sorto Covered Member ID Sorto Member ID Guarantor Name 01/26/2024 1 [place] [id number] Roro Bowens [id number] Roro Bowens Notes Date Note Type Note Provider Name and Address Organization Details Recorded Time 01/26/2024 text/html [facility] Outreach cli briana 53-year-old who comes in to pulmonary clinic for evaluation of asthma. She is a previous patient of JUAN J Ferraro for her asthma and was on chronic prednisone for some time. She is on hydrocortisone 20 mg in the day and 10 QHS for her adrenal insufficiency. Comes back for follow-up of her asthma symptoms today. She is having more sinus congestion. 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 The patient tells me her asthma is doing okay this time of year but she is having more postnasal drip and drainage causing increasing cough. She is using her DuoNebs twice a day and this does help. She is wheezing a little bit but not having much shortness of breath or chest tightness at this time. Taking her Breo as prescribed. She remains on chronic hydrocortisone for adrenal insufficiency and that dose has not changed. Continues have a lot of chronic back pain. Patient said that she was late taking her losartan. She is on 25 mg tabs but only takes a half. PMHx: adrenal insufficiency, asthma, chronic sinusitis, HTN, MDD, migraines, hypothyroidism SurgHx: Gastric surgery, right knee surgery SocHx: Never smoker, rare alcohol FamHx: mom with asthma Patient goes by Karen Referred by Katya at [facility] Brenda Gonsalez MD [address] [place] [address], [phone], [facility] 01/26/2024 10:34:09 OBGyn Episode No OBEpisode recorded.
--- OUTSIDE RECORDS SUMMARY | 2024-07-06 00:41 | XMS_ITS | Encounter Summary ---
Author Organization [facility] Address [facility] [place] [address] Care Team Providers Care Reconditioner Name Role Phone RekhaAlfredo torres Primary Care Provider [phone] Encounter Details Date Type Department Care Team (Late st Contact Info) Description 05/12/2023 Arachno Message Enc [facility] [place] [address] Terrell Lees MD [address] [place] [address] Visit Follow Up Social History Tobacco Use [...] CDT Gender Identity Female 05/28/2021 5:00 AM STUDENT ASSISTANCE COUNSELOR Sexual Orientation Straight 04/30/2021 9: 48 AM STUDENT ASSISTANCE COUNSELOR documented as of this encounter Functional Status * RETIRED Are you deaf or do you have serious difficulty hearing Answer Date of Assessment Author Status No 06/06/2020 2:18 PM STUDENT ASSISTANCE COUNSELOR Activ e * RETIRED Are you blind or do you have serious difficulty seeing, even when wearing glasses? Answer Date of Assessment Author Status No 06/06/2020 2:18 PM STUDENT ASSISTANCE COUNSELOR Activ e * Do you have serious [...] on filedocumented in this encounter Care Teams Reconditioner Relationship Specialty Start Date End Date Alfredo Schuler DO [facility] [place] [address] PCP - General FAMILY PRACTICE 01/02/21 documented as of this encounter
--- OUTSIDE RECORDS SUMMARY | 2024-07-06 00:41 | XMS_ITS | Encounter Summary ---
Author Organization [facility] Address [facility] [place] [address] Care Team Providers Care General Cargo Clerk Name Role Phone RekhaApril torresslim MÁRQUEZ Primary Care Provider [phone] Encounter Details Date Type Department Care Team (Late st Contact Info) Description 02/03/2024 [email or web address] Message Enc [place] [id number] Moisés Bone MD [address] [place] [address] Visit Follow Up Social History [...] CDT Gender Identity Female 05/28/2021 5:00 AM TRACTOR OPERATOR Sexual Orientation Straight 04/30/2021 9: 48 AM TRACTOR OPERATOR documented as of this encounter Functional Status * RETIRED Are you deaf or do you have serious difficulty hearing Answer Date of Assessment Author Status No 06/06/2020 2:18 PM TRACTOR OPERATOR Activ e * RETIRED Are you blind or do you have serious difficulty seeing, even when wearing glasses? Answer Date of Assessment Author Status No 06/06/2020 2:18 PM TRACTOR OPERATOR Activ e * Do you have serious [...] on filedocumented in this encounter Care Teams General Cargo Clerk Relationship Specialty Start Date End Date Alfredo Schuler DO [facility] [place] [address] PCP - General FAMILY PRACTICE 01/02/21 documented as of this encounter
--- OUTSIDE RECORDS SUMMARY | 2024-07-06 00:41 | XMS_ITS | Encounter Summary ---
Author Organization [facility] Address [facility] [place] [address] Care Team Providers Care Alum Operator Name Role Phone RekhaAlfredo torres Primary Care Provider [phone] Encounter Details Date Type Department Care Team (Late st Contact Info) Description 01/08/2023 [employer] Message Enc [facility] [place] [address] Terrell Lees MD [address] [place] [address] Visit Follow Up Social History Tobacco Use [...] CDT Gender Identity Female 05/28/2021 5:00 AM AQUATIC PHYSIOTHERAPIST Sexual Orientation Straight 04/30/2021 9: 48 AM AQUATIC PHYSIOTHERAPIST documented as of this encounter Functional Status * RETIRED Are you deaf or do you have serious difficulty hearing Answer Date of Assessment Author Status No 06/06/2020 2:18 PM AQUATIC PHYSIOTHERAPIST Activ e * RETIRED Are you blind or do you have serious difficulty seeing, even when wearing glasses? Answer Date of Assessment Author Status No 06/06/2020 2:18 PM AQUATIC PHYSIOTHERAPIST Activ e * Do you have serious [...] on filedocumented in this encounter Care Teams Alum Operator Relationship Specialty Start Date End Date Alfredo Schuler DO [facility] [place] [address] PCP - General FAMILY PRACTICE 01/02/21 documented as of this encounter
--- OUTSIDE RECORDS SUMMARY | 2024-07-06 00:41 | XMS_ITS | Encounter Summary ---
Author Organization [facility] Address [facility] [place] [address] Care Team Providers Care Holter Technician Name Role Phone Alfredo Schuler Primary Care Provider [phone] Reason for Visit * Reason Onset Date Comments Schedule Surgery 03/04/2024 Education Encounter Details Date Type Department Care Team (Latest Contact Info) Description 03/04/2024 [facility] [place] [id number] Moisés Bone MD [address] [place] [address] Schedule Surgery (Education) Social History Tobacco Use Types Packs/Day Years [...] CDT Gender Identity Female 05/28/2021 5:00 AM BEDSPREAD CUTTER Sexual Orientation Straight 04/30/2021 9: 48 AM BEDSPREAD CUTTER documented as of this encounter Functional Status * RETIRED Are you deaf or do you have serious difficulty hearing Answer Date of Assessment Author Status No 06/06/2020 2:18 PM BEDSPREAD CUTTER Activ e * RETIRED Are you blind or do you have serious difficulty seeing, even when wearing glasses? Answer Date of Assessment Author Status No 06/06/2020 2:18 PM BEDSPREAD CUTTER Activ e * Do you have serious [...] on filedocumented in this encounter Care Teams Holter Technician Relationship Specialty Start Date End Date Alfredo Schuler DO [facility] [address] [place] [address] PCP - General FAMILY PRACTICE 01/02/21 documented as of this encounter
[2024-07-20] VITALS (7 sets, daily range): BP systolic 147–181; BP diastolic 67–95; PULSE 77–89; RESP 12–19; TEMP 36.1–36.3; O2SAT 98–100; BMI 57.6
--- NOTE | ~2024-07-20 | XR_ITS ---
EXAMINATION: XR fluoroscopy no charge DATE: 07/20/2024 15:14 INDICATION: T10 laminectomy and spinal stimulator placement TECHNIQUE: Single frontal fluoroscopic image of the lower thoracic spine was obtained during procedur e performed by Dr. Gamino. Radiologist was not present for the imaging or procedure. The amount of f luoroscopy time used during this procedure was 0.4 minutes. Total DAP was 5.253 Gycm^2. COMPARISON: None. FINDINGS: Laminectomy with overlying lucent postoperative gas at the lower thoracic spine, reportedly T10. Spin al stimulator leads project over the central canal at the 2 more cephalad levels with distal tip near the superior endplate of what is likely T8. IMPRESSION: 1. Fluoroscopy utilized during reported T10 laminectomy and spinal stimulator placement. See procedur e note for further detail. Reviewed, dictated and finalized at location A. IMPRESSION: 1. Fluoroscopy utilized during reported T10 laminectomy and spinal stimulator p lacement. See procedure note for further detail.
--- OUTSIDE RECORDS SUMMARY | 2024-07-20 00:21 | XMS_ITS | Encounter Summary ---
Author Organization [facility] Address [facility] [place] [address] Care Team Providers Care Hypoid Gear Generator Name Role Phone gS Ferraro MD Primary Care Provider [phone] Alfredo Schuler DO Primary Care Provider [phone] Encounter Details Date Type Department Care Team (Late st Contact Info) Description 06/11/2020 Hospital Follow-up Call [facility] [address] [place], [place] [id number] Eusebia العراقي RN Social History Tobacco Use [...] CDT Gender Identity Female 05/28/2021 5:00 AM PLASTER BLOCK LAYER Sexual Orientation Straight 04/30/2021 9: 48 AM PLASTER BLOCK LAYER COVID-19 Exposure Response Date Recorded In the last month, have you been in contact with someone who was confirmed or suspected to have Coronavirus / COVID-19? No / Unsure 06/06/2020 1:43 PM PLASTER BLOCK LAYER documented as of this encounter Functional Status * RETIRED Are you deaf or do you have serious difficulty hearing Answer Date of Assessment Author Status No 06/06/2020 2:18 PM PLASTER BLOCK LAYER Activ e * RETIRED Are you blind or do you have serious difficulty seeing, even when wearing glasses? Answer Date of Assessment Author Status No 06/06/2020 2:18 PM PLASTER BLOCK LAYER Activ e * Do you have serious difficulty walking or climbing stairs? Answer Date of Assessment Author Status No 06/06/2020 2:18 PM PLASTER BLOCK LAYER Bhavna Osborn RN Active * Do you [...] documented as of this encounter Care Teams Hypoid Gear Generator Relationship Specialty Start Date End Date Sg Ferraro MD PCP - General INTERNAL MEDICINE 06/08/18 01/01/21 Alfredo Schuler DO [address] [place] [address] PCP - General FAMILY PRACTICE 01/02/21 documented as of this encounter
--- OUTSIDE RECORDS SUMMARY | 2024-07-20 00:21 | XMS_ITS | Encounter Summary ---
Author Organization [facility] Address [facility] [place] [address] Care Team Providers Care Drug Safety Physician Name Role Phone Sg Ferraro MD Primary Care Provider [phone] Alfredo Schuler DO Primary Care Provider Encounter Details Date Type Department Care Team (Late st Contact Info) Description 06/11/2020 Hospital Follow-up Call [facility] [address] [place], [place] [id number] Eusebia اعلراقي RN Social History Tobacco Use Types Packs/Day [...] CDT Gender Identity Female 05/28/2021 5:00 AM NEAR EASTERN ARCHAEOLOGY LECTURER Sexual Orientation Straight 04/30/2021 9: 48 AM NEAR EASTERN ARCHAEOLOGY LECTURER COVID-19 Exposure Response Date Recorded In the last month, have you been in contact with someone who was confirmed or suspected to have Coronavirus / COVID-19? No / Unsure 06/06/2020 1:43 PM NEAR EASTERN ARCHAEOLOGY LECTURER documented as of this encounter Functional Status * RETIRED Are you deaf or do you have serious difficulty hearing Answer Date of Assessment Author Status No 06/06/2020 2:18 PM NEAR EASTERN ARCHAEOLOGY LECTURER Activ e * RETIRED Are you blind or do you have serious difficulty seeing, even when wearing glasses? Answer Date of Assessment Author Status No 06/06/2020 2:18 PM NEAR EASTERN ARCHAEOLOGY LECTURER Activ e * Do you have serious difficulty walking or climbing stairs? Answer Date of Assessment Author Status No 06/06/2020 2:18 PM NEAR EASTERN ARCHAEOLOGY LECTURER Bhavna Osborn RN Active * Do you [...] documented as of this encounter Care Teams Drug Safety Physician Relationship Specialty Start Date End Date Sg Ferraro MD PCP - General INTERNAL MEDICINE 06/08/18 01/01/21 Alfredo Schuler DO [address] [place] [address] PCP - General FAMILY PRACTICE 01/02/21 documented as of this encounter
--- OUTSIDE RECORDS SUMMARY | 2024-07-20 00:21 | XMS_ITS | Encounter Summary ---
Author Organization [facility] Address [facility] [place] [address] Care Team Providers Care Solidworks Drafter Name Role Phone Sg Ferraro MD Primary Care Provider [phone] Alfredo Schuler DO Primary Care Provider [phone] Encounter Details Date Type Department Care Team (Late st Contact Info) Description 09/25/2018 Abstract [facility]FL CONVERSION [address] [place] [id number] , Generic Conversion, Social History Tobacco Use Types Packs/Day Years Used Date Smoking Tobacco: Never Assessed Comments Unknown Sex and Gender Information Value Date Recorded Sex Assigned at Not on file Legal Sex Female 9:35 PM CDT Gender Identity Female 05/28/2021 5:00 AM QUANTITATIVE RESEARCHER Sexual Orientation Straight 04/30/2021 9: 48 AM QUANTITATIVE RESEARCHER documented as of this encounter Plan of Treatment Not on file documented as of this encounter Visit Diagnoses Not on filedocumented in this encounter Additional Health Concerns Infection Onset Date Last Indicated Resolved Time COVID-19 Rule Out 09/19/2019 09/19/2019 09/20/2019 4:26 AM CDT COVID-19 Rule Out 05/18/2020 05/18/2020 05/18/2020 2:56 PM QUANTITATIVE RESEARCHER COVID-19 Confirmed Comment:Patients meets criteria for removal of isolation. IP discussed with Dr. Calloway. (SB) 05/18/2020 05/18/2020 06/08/2020 7:56 AM QUANTITATIVE RESEARCHER COVID-19 Rule Out 02/21/2021 02/21/2021 02/21/2021 7:07 PM CDT COVID-19 Rule Out 08/05/2021 08/05/2021 08/06/2021 7:22 PM CDT COVID-19 Rule Out 01/02/2022 01/02/2022 01/02/2022 8:17 PM CDT documented as of this encounter Care Teams Solidworks Drafter Relationship Specialty Start Date End Date Sg Ferraro MD PCP - General INTERNAL MEDICINE 06/08/18 01/01/21 Alfredo Schuler DO [address] [place] [address] PCP - General FAMILY PRACTICE 01/02/21 documented as of this encounter
--- OUTSIDE RECORDS SUMMARY | 2024-07-20 00:22 | XMS_ITS | Encounter Summary ---
Author Organization [facility] Address [facility] [place] [address] Care Team Providers Care Corn Husker Machine Operator Name Role Phone RekhaAlfredo torres Primary Care Provider [phone] Encounter Details Date Type Department Care Team (Late st Contact Info) Description 09/23/2022 [employer] Message [place] [address] Terrell Lees MD [address] [place] [address] Visit Follow Up Social History Tobacco Use [...] CDT Gender Identity Female 05/28/2021 5:00 AM CUSTOMER SUCCESS REPRESENTATIVE Sexual Orientation Straight 04/30/2021 9: 48 AM CUSTOMER SUCCESS REPRESENTATIVE COVID-19 Exposure Response Date Recorded In the last 10 days, have yo u been in contact with someone who was confirmed or suspected to have Coronavirus/COVID-19? No / Unsure 09/23/2022 8:30 AM CDT documented as of this encounter Functional Status * RETIRED Are you deaf or do you have serious difficulty hearing Answer Date of Assessment Author Status No 06/06/2020 2:18 PM CUSTOMER SUCCESS REPRESENTATIVE Activ e * RETIRED Are you blind or do you have serious difficulty seeing, even when wearing glasses? Answer Date of Assessment Author Status No 06/06/2020 2:18 PM CUSTOMER SUCCESS REPRESENTATIVE Activ e * Do you have serious [...] on filedocumented in this encounter Care Teams Corn Husker Machine Operator Relationship Specialty Start Date End Date Alfredo Schuler DO [facility] [place] [address] PCP - General FAMILY PRACTICE 01/02/21 documented as of this encounter
--- OUTSIDE RECORDS SUMMARY | 2024-07-20 00:22 | XMS_ITS | Encounter Summary ---
Author Organization [facility] Address [facility] [place] [address] Care Team Providers Care Licensed Physical Therapist Assistant Name Role Phone Alfredo Schuler Primary Care Provider [phone] Reason for Visit * Reason Onset Date Comments Schedule Surgery 03/04/2024 Education Encounter Details Date Type Department Care Team (Latest Contact Info) Description 03/04/2024 [facility] Documentation [facility] [place] [phone] Moisés Bone MD [address] [place] [address] Schedule Surgery (Education) Social History [...] CDT Gender Identity Female 05/28/2021 5:00 AM NUT FEEDER Sexual Orientation Straight 04/30/2021 9: 48 AM NUT FEEDER documented as of this encounter Functional Status * RETIRED Are you deaf or do you have serious difficulty hearing Answer Date of Assessment Author Status No 06/06/2020 2:18 PM NUT FEEDER Activ e * RETIRED Are you blind or do you have serious difficulty seeing, even when wearing glasses? Answer Date of Assessment Author Status No 06/06/2020 2:18 PM NUT FEEDER Activ e * Do you have serious difficulty walking or climbing stairs? Answer Date of Assessment Author Status No 06/06/2020 2:18 PM Bhavna Stout RN Active * Do you have difficulty dressing or bathing? Answer Date of Assessment Author Status No 06/06/2020 2:18 PM NUT FEEDER Bhavna Osborn RN Active * Because of a physical, [...] Stout RN Active documented in this encounter Progress Notes * ZUNILDA Doran - 03/04/2024 10:09 AM CST Patient documented in this encounter Plan of Treatment Not on file documented as of this encounter Visit Diagnoses Not on filedocumented in this encounter Care Teams Licensed Physical Therapist Assistant Relationship Specialty Start Date End Date Alfredo Schuler DO [address] [place] [address] PCP - General FAMILY PRACTICE 01/02/21 documented as of this encounter
--- OUTSIDE RECORDS SUMMARY | 2024-07-20 00:22 | XMS_ITS | Encounter Summary ---
Author Organization [facility] Address [facility] [place] [address] Care Team Providers Care Demurrage Clerk Name Role Phone RekhaAlfredo torres Primary Care Provider [phone] Encounter Details Date Type Department Care Team (Late st Contact Info) Description 05/12/2023 [employer] Message Enc [facility] [place] [address] Terrell Lees MD [address] [place] [address] Visit Follow Up Social History Tobacco Use [...] CDT Gender Identity Female 05/28/2021 5:00 AM SENIOR SYSTEM OPERATOR Sexual Orientation Straight 04/30/2021 9: 48 AM SENIOR SYSTEM OPERATOR documented as of this encounter Functional Status * RETIRED Are you deaf or do you have serious difficulty hearing Answer Date of Assessment Author Status No 06/06/2020 2:18 PM SENIOR SYSTEM OPERATOR Activ e * RETIRED Are you blind or do you have serious difficulty seeing, even when wearing glasses? Answer Date of Assessment Author Status No 06/06/2020 2:18 PM SENIOR SYSTEM OPERATOR Activ e * Do you have [...] on filedocumented in this encounter Care Teams Demurrage Clerk Relationship Specialty Start Date End Date Alfredo Schuler DO [facility] [place] [address] PCP - General FAMILY PRACTICE 01/02/21 documented as of this encounter
--- OUTSIDE RECORDS SUMMARY | 2024-07-20 00:22 | XMS_ITS | Clinical Summary ---
Author Organization [facility] Address [facility] [place] [address] Care Team Providers Care Mushroom Picker Name Role Phone GangaAlfredo Primary Care Provider [phone] Allergies Active Allergy Reactions Criticality Noted Date [...] 11/24/19 20 Dorsalgia 05/12/2019 Lumbar radiculopathy 05/12/2019 Family History Medical History Relation Comments No [...] CDT Gender Identity Female 05/28/2021 5:00 AM SANDWICH ARTIST Sexual Orientation Straight 04/30/2021 9: 48 AM SANDWICH ARTIST Last Filed Vital Signs Vital Sign Reading [...] Vaccine (1 - 2023-2 5 season) 2023 DTaP, Tdap and Td Vaccines ( 2 [...] this topic Medical Devices Implanted Type Area Pharmaceutical Botanist Device Identifier Shelf Expiration Date Model / Serial / Lot Stimulator Lead-07/04/2022 Implanted:Qty: 2 on 07/04/2022 Lead Implant Spine Thoracic [employer] CARDIAC RHYTHM AND HEART FAILURE - DIV M [id number] / / Description:2 LEADS Stimulator Implant- 023 Implanted:Qty: 1 on 07/04/2022 Stimulator Implant [employer] CARDIAC RHYTHM AND HEART FAILURE - DIV M [id number] / [id number] / Description:MR Conditional a t 1.5 T only, Should be full body eligible but need remote to check, need remote to turn off stimulation, Normal DELROY, Max 30 minutes scan time in 90 minute window Explanted Type Area Pharmaceutical Botanist Device Identifier Shelf Expiration Date Model / Serial / Lot Bur Vortex 6.0mm - [id number] Explanted:Qty: 1 on 09/21/2019 at [facility] [employer] [id number] / / Procedures Procedure Name Priority Date/Time Associated Diagnosis Comments CYTOPATH CERV/VAG THIN LAYER Routine 06/25/2020 1:36 PM SANDWICH ARTIST MG SCREENING W GUILLERMO RIO DIGI Routine 03/24/2019 9:16 AM SANDWICH ARTIST Screening for breast cancer from Last 3 Months or Most Recently Relevant to Health Maintenance Results * Cytopath Cerv/Vag Thin Layer (06/25/2020 1:36 PM SANDWICH ARTIST) THIN PREP PAP [address] [address] Department of Pathology Pathology Report CERVICAL/VAGINAL PAP SMEAR REPORT Name: RORO BA Age: 12 1970 (Age: 50) Location: [facility] Sex: F Collected Date: 06/25/2020 Hospital #: [id number] Date Received: 06/27/2020 Date Reported: 07/02/2020 Provider: [...] Z12.4 SCREENING ABNORMAL/POST MENOPAUSAL BLEEDING PAP AND LOAF COUNTER SURGICAL HISTORY - UNKNOWN ThinPrep Pap Test [...] is not effective in detecting cervical adenocarcinoma. [facility] 06/25/2020 1:36 PM SANDWICH ARTIST 06/27/2020 1:36 PM SANDWICH ARTIST Comment:CERVICAL/ENDOCERVICA L us Vasyl Coto MD PATHOLOGY/CYTOLOGY ORDERABLES Final Result [facility] [address] [place] [address], [id number] [facility] [address] [place], [place] [id number], * MG SCREENING W GIULLERMO RIO DIGI (03/24/2019 9:16 AM SANDWICH ARTIST) Anatomical Region Laterality Modality Breast Bilateral Mammography 03/28/2019 2:57 PM SANDWICH ARTIST Impressions 03/28/2019 2:58 PM SANDWICH ARTIST IMPRESSION: Moderately dense breasts. No mammographic evidence of malignancy. Recommendation: 1: Routine screening mammogram Bilateral in 1 Year Assessment: ACR BI-RADS Category 2 - Benign. Interpreted By: Harish Hernandez, 03/28/2019 2:57 PM Narrative 03/28/2019 2:58 PM SANDWICH ARTIST Examination: Digital screening mammogram with CAD. Clinical [...] 2:31 PM 06/08/2020 6:23 PM Care Teams Mushroom Picker Relationship Specialty Start Date End Date Alfredo Schuler DO [address] [place] [address] PCP - General FAMILY PRACTICE 01/02/21
--- OUTSIDE RECORDS SUMMARY | 2024-07-20 00:22 | XMS_ITS | Encounter Summary ---
Author Organization [facility] Address [facility] [place] [address] Care Team Providers Care Contour Band Saw Operator Vertical Name Role Phone RekhaAlfredo torres Primary Care Provider [phone] Encounter Details Date Type Department Care Team (Late st Contact Info) Description 01/08/2023 [employer] Message Enc [facility] [place] [address] Terrell Lees MD [address] [place] [address] Visit Follow Up Social History Tobacco Use [...] CDT Gender Identity Female 05/28/2021 5:00 AM COMPUTER CLERK Sexual Orientation Straight 04/30/2021 9: 48 AM COMPUTER CLERK documented as of this encounter Functional Status * RETIRED Are you deaf or do you have serious difficulty hearing Answer Date of Assessment Author Status No 06/06/2020 2:18 PM COMPUTER CLERK Activ e * RETIRED Are you blind or do you have serious difficulty seeing, even when wearing glasses? Answer Date of Assessment Author Status No 06/06/2020 2:18 PM COMPUTER CLERK Activ e * Do you have serious [...] on filedocumented in this encounter Care Teams Contour Band Saw Operator Vertical Relationship Specialty Start Date End Date Alfredo Schuler DO [facility] [place] [address] PCP - General FAMILY PRACTICE 01/02/21 documented as of this encounter
--- OUTSIDE RECORDS SUMMARY | 2024-07-20 00:22 | XMS_ITS | Encounter Summary ---
Author Organization [facility] Address [facility] [place] [address] Care Team Providers Care Director Of Radiology Name Role Phone eRkhaAlfredo torres Primary Care Provider [phone] Encounter Details Date Type Department Care Team (Late st Contact Info) Description 11/25/2023 [employer] Message Enc [place] [phone] Moisés Bone MD [address] [place] [address] Visit Follow Up Social History [...] CDT Gender Identity Female 05/28/2021 5:00 AM ETL ANALYST DEVELOPER Sexual Orientation Straight 04/30/2021 9: 48 AM ETL ANALYST DEVELOPER documented as of this encounter Functional Status * RETIRED Are you deaf or do you have serious difficulty hearing Answer Date of Assessment Author Status No 06/06/2020 2:18 PM ETL ANALYST DEVELOPER Activ e * RETIRED Are you blind or do you have serious difficulty seeing, even when wearing glasses? Answer Date of Assessment Author Status No 06/06/2020 2:18 PM ETL ANALYST DEVELOPER Activ e * Do you have serious [...] on filedocumented in this encounter Care Teams Director Of Radiology Relationship Specialty Start Date End Date Alfredo Schuler DO [facility] [place] [address] PCP - General FAMILY PRACTICE 01/02/21 documented as of this encounter
--- OUTSIDE RECORDS SUMMARY | 2024-07-20 00:22 | XMS_ITS | Encounter Summary ---
Author Organization [facility] Address [facility] [place] [address] Care Team Providers Care Musical String Maker Name Role Phone RekhaApril torresslim MÁRQUEZ Primary Care Provider Encounter Details Date Type Department Care Team (Late st Contact Info) Description 02/03/2024 [employer] Message Enc [place] [phone] Moisés Bone MD [address] [place] [address] Visit Follow Up Social History [...] CDT Gender Identity Female 05/28/2021 5:00 AM STAY CUTTER Sexual Orientation Straight 04/30/2021 9: 48 AM STAY CUTTER documented as of this encounter Functional Status * RETIRED Are you deaf or do you have serious difficulty hearing Answer Date of Assessment Author Status No 06/06/2020 2:18 PM STAY CUTTER Activ e * RETIRED Are you blind or do you have serious difficulty seeing, even when wearing glasses? Answer Date of Assessment Author Status No 06/06/2020 2:18 PM STAY CUTTER Activ e * Do you have [...] on filedocumented in this encounter Care Teams Musical String Maker Relationship Specialty Start Date End Date Alfredo Schuler DO [facility] [place] [address] PCP - General FAMILY PRACTICE 01/02/21 documented as of this encounter
--- OUTSIDE RECORDS SUMMARY | 2024-07-20 00:22 | XMS_ITS | Data Portability ---
Author Organization [facility] BRIANA P, [address] [facility] ([place]) Address [address] [place] [address] Care Team Providers Care Hand Painter Name Role Phone VIJAY CHAVEZ Primary Care Provider [phone] Assessment No assessment recorded. Plan of Treatment [...] Address Organization Details Recorded Time Hypertensive disorder 62447965 Active 2023 Brenda Gonsalez MD [address] [place] [address], [phone], [facility] 4 10:18:47 Fatigue 66450370 Active 2023 Brenda Gonsalez MD [address] [place] [address], [phone], [facility] 4 10:30:34 Asthma 033246568 Active 2023 Cresencio Collins [facility] 4 12:14:04 Problem Notes None recorded. Procedures [...] Name and Address Organization Details Recorded Time 212906 Ceftin medicatio n Not available Not available Not available 05/18/20232018 31677 6 RxNorm Not Available Not Available Not [...] Last Updated DateTime 157.48 cm 57.8 kg/m2 948374. 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 1-2 Times Per Week [email or web address] Information not available 01/20/2024 How Many Packs Per Day (PPD)? 1 Information not available 01/26/2024 How Long Have You Smoked? 1 Year Information not available 01/26/2024 When Did You Quit Smoking? 2001 [email or web address] Information not available 01/20/2024 Do You Have A Medical Power Of Concrete Block Plant Supervisor? No [email or web address] Information not available 01/20/2024 What [...] available 2023 09:59:52 Medical History Condition Response Attention-deficit Hyperactivity Disorder N High Blood Pressure Y Thyroid Problems Y COPD N Depression Y Anemia N Anxiety Disorder Y Diabetes N Bleeding Disorder N Arthritis N Hyperlipidemia N Cancer N Stroke N Asthma Y Seizures N Heart Disease N Fibromyalgia Y Osteoporosis N Kidney Disease N Gynecological HistoryNo gynecological history recorded. Obstetrics History GPAL:G 0 P 0 0 0 0 Past Encounters Encounter ID Performer Location Encounter Start Date Encounter Closed Date Diagnosis/Indication Diagnosis SNOMED-CT Code Diagnosis ICD10 Code Diagnosis Note [id number] Brenda Gonsalez MD [facility] ([place]) [address] [place] [address] 01/26/2024 10:09:58 01/26/2024 11:34:14 Asthma 438346287 J45.909 On a combinatio n of Breo [...] with the Breo inhaler. Hypertensive disorder 38 439720 I10 Blood pressure significan tly elevated at [...] headache, visual changes, dizziness, chest pain. Fatigue 90611664 R53.83 Patient has a longstandi ng fatigue with chronic sleep disturbanc es and uncontroll ed blood pressure. I have a high suspicion for underlying sleep apnea and we will get her set up with a split-nigh t sleep study, and trial of PAP if positive. Will get this arranged through [facility]. Health Concerns Section Related Observation LastModified by Organization Detai ls LastModified Time None Recorded Concern Status LastModified by Organization Details LastModified Time None Recorded Advance Directives Directive N: Payers Encounter Date Sequence Insurance Name Policy Number Policy Sorto Covered Member ID Sorto Member ID Guarantor Name 01/26/2024 1 [place] [id number] Roro Bowens [id number] 25 Roro Bowens Notes Date Note Type Note Provider Name and Address Organization Details Recorded Time 01/26/2024 text/html [facility] Outreach cli briana 53-year-old who comes in [...] congestion. Used to see ENT but her checkering machine operator just moved and she is in the [...] goes by Karen Referred by Katya at [facility] Brenda Gonsalez MD [address] [place] [address], [phone], [facility] 01/26/2024 10:34:09 OBGyn Episode No OBEpisode recorded.
[2024-07-20] MEDS: VANCOMYCIN 2,000 MG/NS 500 ML BAG 250 MG IVPB (10:30)
[2024-07-20 10:35] LABS: Glucose Point of Care 142 mg/dl (65-105)
[2024-07-20] MEDS: LACTATED RINGERS 1,000 ML 30 ML IV CONT (10:52)
--- NOTE | 2024-07-20 12:07 | P.HP_ITS ---
H&P: HPI History of Present Illness Date/Time: 07/20/24 12:07 Chief Complaint: migration of spinal cord stimulator Narrative: Ms. Chandra Bowens is a 54-year-old female with history of hypertension, Taylor's disease, asthma, and morbid obesity who was referred by Dr. Waldron for consideration placement of a paddle spinal cord stimulator. The patient has a 10 year history of lower back pain without radiation into the legs for which she previously had a number of treatments including epidural steroid injections, radiofrequency ablations, and then a percutaneous Medtronic spinal cord stimulator which was placed in June 2022. This was initially helpful for her and relieved about 80% of her symptoms. Unfortunately, a week after surgery, she slipped and fell, causing her leads to migrate. Dr. Waldron did a revision of this, but she has had subsequent falls and has not received the same amount of relief from her stimulator despite multiple programming. There has been discussion of placement of intrathecal pain pump verses revising her percutaneous stimulator to a paddle. She is preferring to revise her stimulator prior to consideration of a pain pump. She notably is on daily steroids related to adrenal insufficiency from repeated epidural steroid injections and steroids for her asthma. She developed diabetes as a result of this which is currently very well controlled. She takes an aspirin on occasion for pain but otherwise does not take blood thinners. 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 Review of Systems Review of Systems: All systems reviewed & are unremarkable except as noted in HPI and below PMFSH Past Medical History Medical History (Updated 07/19/24 @ 13:14 by Paul Liao, ) Chronic, continuous use of opioids norco x 2 years Type 2 diabetes mellitus Migraine headache MDD (major depressive disorder) Hypothyroidism Chinedu's disease Chronic back pain Asthma Hypertension Surgical History Surgical History History of bariatric surgery Gastric sleeve H/O knee surgery right Social History Social History Smoking status: Never smoker Alcohol intake: current Alcohol use details: RARE Substance use: never Substance use type: does not use Do You Feel Safe in your Home?: Yes Lack of Transportation: No Lack of Food: Never True Current Housing: I Have Housing Concerned About Future Housing: No Difficulty Paying Gas/Electric Bills: No Difficulty Paying for Meds: No Currently Unemployed: No Education: Trade/Vocational Certificate Difficulty w/ Childcare or Family Care: No Living arrangements: with family Spiritual care concerns: No Meds Home Medications and Allergies Home Medications ?Medication ?Instructions ?Recorded ?Confirmed ?Type albuterol sulfate 90 mcg/actuation 1 puff inhalation Q4H PRN 10/29/20 07/11/24 History aerosol inhaler Bronchospasm montelukast 10 mg tablet 10 mg PO HS 10/29/20 06/24/24 History fludrocortisone 0.1 mg tablet 0.05 mg (1/2 x 0.1 mg) PO DAILY 11/20/20 06/24/24 Rx #90 tabs ergocalciferol (vitamin D2) 10 mcg 10 mcg PO DAILY 01/18/21 06/24/24 History (400 unit) tablet pregabalin 150 mg capsule (Lyrica) 150 mg PO BID 01/18/21 06/24/24 History epinephrine 0.3 mg/0.3 mL 0.3 mg (0.3 mL) IM ONCE #2 ea 08/20/21 06/24/24 Rx injection, auto-injector fluticasone furoate 200 1 inh inhalation DAILY 07/23/22 06/24/24 History mcg-vilanterol 25 mcg/dose inhalation powder (Breo Ellipta) fluticasone propionate 50 2 - 3 spray intranasal BID 03/23/23 06/24/24 History mcg/actuation nasal spray,suspension tramadol 50 mg tablet 50 mg PO QID PRN Pain #20 tabs 12/23/23 06/24/24 Rx atorvastatin 40 mg tablet See Rx Instructions .Route 03/28/24 06/24/24 Rx .COMPLEX #90 tabs venlafaxine 150 mg See Rx Instructions .Route 04/26/24 06/24/24 Rx capsule,extended release 24 hr .COMPLEX #60 caps losartan 50 mg-hydrochlorothiazide See Rx Instructions .Route 05/11/24 07/20/24 Rx 12.5 mg tablet .COMPLEX #90 tabs dulaglutide 0.75 mg/0.5 mL 0.75 mg (0.5 mL) subcut WEEKLY #2 05/16/24 06/24/24 Rx subcutaneous pen injector mL (Trulicity) hydrocortisone 10 mg tablet See Rx Instructions .Route 06/13/24 07/20/24 Rx .COMPLEX #90 ea omeprazole 40 mg capsule,delayed See Rx Instructions .Route 06/13/24 06/24/24 Rx release .COMPLEX #60 caps potassium chloride 10 mEq See Rx Instructions .Route 06/30/24 07/20/24 Rx tablet,extended release .COMPLEX #60 tabs levothyroxine 50 mcg tablet See Rx Instructions .Route 07/14/24 07/20/24 Rx .COMPLEX #90 tabs Allergies Allergy/AdvReac Type Severity Reaction Status Date / Time cefuroxime (From Ceftin) Allergy Severe Anaphylaxis Verified 07/20/24 10:38 clindamycin Allergy Severe Anaphylactic Verified 07/20/24 10:38 Shock metformin AdvReac Intermediate Diarrhea/Cr Verified 07/20/24 10:38 amping/Naus ea Vital Signs Vital Signs - 24 hr 07/20/24 10:48 Temperature 97 F L Pulse Rate 89 Blood Pressure 181/87 H Pulse Oximetry 99 Oxygen Delivery Room Air Exam Narrative: Right gluteal generator Unless otherwise stated above, the patient's physical exam is as follows: General: -Well developed and well nourished. No a cute distress. Cooperative with exam. Mental status: -Awake and oriented to person, place, an d time. Affect is normal. -Fund of knowledge appropriate -Recent and remote memory are intact -Attention span and concentration appear normal -Language function is normal -There is no evidence of aphasia in conv ersational speech. Cranial nerves: -CN II: Visual nguyen full to bedside co nfrontation -CN III, IV, : Pupils equal, round, an d reactive to light; extraocular movements, no ptosis, no nystagmus -CN V: Facial sensation intact in V1 thr ough V3 distributions -CN VII: Face symmetric -CN VIII: Hearing intact to conversation al speech -CN IX, X: Palate elevates symmetrically ; normal phonation -CN XI: Symmetric full strength of aviles ocleidomastoid and trapezius muscles -CN XII: Tongue protrudes midline Integumentary: -No obvious skin lesions or masses Motor: -Muscle tone normal without spasticity o f flaccidity. No atrophy. No fa sciculations. -No pronator drift -Right upper extremity: deltoid 5/5, bic eps 5/5, triceps 5/5, wrist extensors 5/5, wrist flexors 5/5, intrinsics 5/5 -Left upper extremity: deltoid 5/5, annita ps 5/5, triceps 5/5, wrist extensors 5/5, wrist flexors 5/5, intrinsics 5/5 -Right lower extremity: iliopsoas 5/5, q uadriceps 5/5, hamstrings 5/5, tibialis anterior 5/5, gastroc-soleus 5/5, EHL 5/5 -Left lower extremity: iliopsoas 5/5, qu adriceps 5/5, hamstrings 5/5, tibialis anterior 5/5, gastroc-soleus 5/5, EHL 5/5 Sensory: -Intact to light touch throughout -Normal proprioception throughout Reflexes: -1-2+ DTR's throughout -No Deluca's, clonus, or Babinski bilat erally Musculoskeletal: -Lumbar spine: no tenderness to palpatio n, no pain, and normal lumbosacral spine movements -Kgdmrsot-aco-nfgbn test negative -Hip: normal range of motion, no crepitu s bilaterally. No pain reproduced on LAWANDA or FAIR testing bilaterally -Knee: no instability, subluxation or la xity, and no crepitus bilaterally I personally reviewed the MRI thoracic spine and packs which does not show any significant central stenosis Assessment and Plan Assessment and plan (1) Migration of spinal cord stimulator: Code(s): T85.122A - Displacement of implanted electronic neurostimulator of spinal cord electrode (lead), initial encounter Status: Acute Plan Ms. Chandra Bowens is a 54-year-old female with history of chronic low back pain for which she had very good response to spinal cord stimulation with the Medtronic platform. She unfortunately has fallen a number of times and cause lead migration, prevented her from getting good symptomatic relief. Dr. Waldron has recommended replacement of her percutaneous system with a paddle electrode, hence a referral here today. Her generator is currently in the right gluteal area but is placed in such a way that it is not comfortable for her, and she requested that this be repositioned as well. We will plan to move this cranially several centimeters. I have offered her surgery in the form of removal of percutaneous spinal cord stimulator, T10 laminotomy for placement of paddle stimulator, and revision of her generator pocket. She wants her generator placed on the left side. We discussed surgery in detail including risks, expected recovery, and restrictions after surgery. We also discussed that there is a possibility that this may not fix her pain issues as her stimulator appears in atypical position, but given that she had good relief prior to her falls, I am help replacing this with a paddle electrode will give her better relief. She expressed understanding and would like to proceed with this as discussed.
--- NOTE | 2024-07-20 12:08 | WPDHPUPDATE1 ---
History and Physical Update Update Date/Time: 07/20/24 12:08 History and Physical has been reviewed, including an updated exam of the patient. There are NO changes in the patient's condition. Risks, benefits, and alternatives have been discussed and questions answered. Patient agrees to proceed with procedure.
--- NOTE | 2024-07-20 12:13 | WPDANESEPPF ---
Anes - Initial Pre Proc Eval Procedure: Operation Date: 07/20/24 12:00 Proposed Procedures p Removal of Percutaneous Spinal Cord Stimulator, T10 Laminectomy for Placement of Paddle Stimulator and Revision of Generator Pocket - Cindy Gamino MD Date/Time: 07/20/24 12:13 Surgeon: Cindy Gamino MD Pre Op Diagnosis: spinal cord stimulator migration Patient Data Age: 54 Gender: F Height: 1.57 m Weight: 143 kg Last Vital Signs Temp 97 F L 07/20/24 10:48 Pulse 89 07/20/24 10:48 BP 181/87 H 07/20/24 10:48 Pulse Ox 99 07/20/24 10:48 O2 Del Method Room Air 07/20/24 10:48 Allergies Allergy/AdvReac Type Severity Reaction Status Date / Time cefuroxime (From Ceftin) Allergy Severe Anaphylaxis Verified 07/20/24 10:38 clindamycin Allergy Severe Anaphylactic Verified 07/20/24 10:38 Shock metformin AdvReac Intermediate Diarrhea/Cr Verified 07/20/24 10:38 amping/Naus ea Home Medications ?Medication ?Instructions ?Recorded ?Confirmed ?Type albuterol sulfate 90 mcg/actuation 1 puff inhalation Q4H PRN 10/29/20 07/11/24 History aerosol inhaler Bronchospasm montelukast 10 mg tablet 10 mg PO HS 10/29/20 06/24/24 History fludrocortisone 0.1 mg tablet 0.05 mg (1/2 x 0.1 mg) PO DAILY 11/20/20 06/24/24 Rx #90 tabs ergocalciferol (vitamin D2) 10 mcg 10 mcg PO DAILY 01/18/21 06/24/24 History (400 unit) tablet pregabalin 150 mg capsule (Lyrica) 150 mg PO BID 01/18/21 06/24/24 History epinephrine 0.3 mg/0.3 mL 0.3 mg (0.3 mL) IM ONCE #2 ea 08/20/21 06/24/24 Rx injection, auto-injector fluticasone furoate 200 1 inh inhalation DAILY 07/23/22 06/24/24 History mcg-vilanterol 25 mcg/dose inhalation powder (Breo Ellipta) fluticasone propionate 50 2 - 3 spray intranasal BID 03/23/23 06/24/24 History mcg/actuation nasal spray,suspension tramadol 50 mg tablet 50 mg PO QID PRN Pain #20 tabs 12/23/23 06/24/24 Rx atorvastatin 40 mg tablet See Rx Instructions .Route 03/28/24 06/24/24 Rx .COMPLEX #90 tabs venlafaxine 150 mg See Rx Instructions .Route 04/26/24 06/24/24 Rx capsule,extended release 24 hr .COMPLEX #60 caps losartan 50 mg-hydrochlorothiazide See Rx Instructions .Route 05/11/24 07/20/24 Rx 12.5 mg tablet .COMPLEX #90 tabs dulaglutide 0.75 mg/0.5 mL 0.75 mg (0.5 mL) subcut WEEKLY #2 05/16/24 06/24/24 Rx subcutaneous pen injector mL (Trulicity) hydrocortisone 10 mg tablet See Rx Instructions .Route 06/13/24 07/20/24 Rx .COMPLEX #90 ea omeprazole 40 mg capsule,delayed See Rx Instructions .Route 06/13/24 06/24/24 Rx release .COMPLEX #60 caps potassium chloride 10 mEq See Rx Instructions .Route 06/30/24 07/20/24 Rx tablet,extended release .COMPLEX #60 tabs levothyroxine 50 mcg tablet See Rx Instructions .Route 07/14/24 07/20/24 Rx .COMPLEX #90 tabs Laboratory Tests 07/20/24 07/20/24 10:23 10:28 APTT Pending POC Capillary Glucose 142 H mg/dl (65-105) Patient hx anesthesia problems: none Family hx anesthesia problems: none Results Review: All pre-operative results and documents have been reviewed as part of the pre-operative evaluation. [facility] Past Medical History Medical History Chronic, continuous use of opioids norco x 2 years Type 2 diabetes mellitus Migraine headache MDD (major depressive disorder) Hypothyroidism [place]'s disease Chronic back pain Asthma Hypertension Surgical History Surgical History History of bariatric surgery Gastric sleeve H/O knee surgery right Social History Social History Smoking status: Never smoker Alcohol intake: current Alcohol use details: RARE Substance use: never Substance use type: does not use Do You Feel Safe in your Home?: Yes Lack of Transportation: No Lack of Food: Never True Current Housing: I Have Housing Concerned About Future Housing: No Difficulty Paying Gas/Electric Bills: No Difficulty Paying for Meds: No Currently Unemployed: No Education: Trade/Vocational Certificate Difficulty w/ Childcare or Family Care: No Living arrangements: with family Spiritual care concerns: No Anes - Eval Final PreProcedure Day of Procedure 07/20/24 12:13 Patient weight: super morbidly obese Heart: regular rate and rhythm Airway: Mallampati scale class II Neurological: alert and oriented Last oral intake: >/= 8 hours ASA classification: IV Emergent: yes Anesthetic plan: proceed Anesthesia type and monitoring: general ETT and standard monitoring Results Review: All pre-operative results and documents have been reviewed as part of the pre-operative evaluation. Informed Consent: The patient's anesthetic plan and its attendant risks and benefits were discussed with the patient/family/POA. Questions were solicited and answers provided to the satisfaction of the patient/family/POA.
[2024-07-20] MEDS: BUPIVACAINE/EPINEPHRINE 0.5% 30 ML VIAL INFILTRATE (13:07)
[2024-07-20] MEDS: VANCOMYCIN HCL 1,000 MG VIAL 1000 MG TOPICAL (13:09)
--- NOTE | 2024-07-20 15:17 | W.PM.PROC2 ---
Procedure Note - Detailed Date of Procedure 07/20/24 Pre-op Diagnosis spinal cord stimulator migration Post-op Diagnosis Same Procedure Performed 1. Removal of existing percutaneous stimulator leads and right gluteal generator 2. T9, T10 laminotomies for placement of spinal cord stimulator 3. Placement of left gluteal generator 4. Use of C-arm for fluoroscopy Surgeon Cindy Gamino MD [employer] Chief Scientist Jose Anesthesia General Description of Procedure The patient was brought to the OR where general anesthesia was induced. The patient was turned prone onto the OR table with Edd frame. All pressure points were padded. C-arm was used to plan the level of the thoracic incision. The previous right gluteal incision and midline lumbar incision were marked. The new left-sided gluteal incision was planned with her standing in pre-op before surgery to ensure good placement. The surgical site was prepped and draped in usual sterile fashion. Perioperative antibiotics were given. Local anesthesia was injected into the planned incisions. A 10-blade scalpel was used to open the existing right gluteal and lumbar incisions. The generator was exposed and was removed from the pocket. This was disconnected from the stimulator leads and was saved on the back table for replacement. The anchors were exposed in the lumbar incision and were removed, allowing removal of both entire percutaneous leads. A new incision left gluteal area was opened with a scalpel, and a bovie was used to create a subcutaneous pocket inferiorly. The pocket was packed with a wet Raytec. Next, the thoracic incision was opened with the scalpel, and the soft tissue was dissected with the bovie. The laminae were exposed bilaterally at T10. This was confirmed with the C-arm. A laminotomy was performed at the mid portion of T10 with the Leksell, high-speed drill, and kerrisons. The laminotomy opening was widened laterally. A curved currette, Woodsen, and 3-penfield were used to separate the dura from the laminae. The paddle stimulator was then placed into the epidural space. The placement was noted to be to the left of midline. Despite multiple attempts at midline placement, we were unsuccessful, so I created a second laminotomy at T9 to break up midline adhesions to allow for more ideal midline placement of the stimulator. Eventually, we were able to pass the paddle into the midline, with the placement matching the level of the desired placement. Anchors were placed into the leads which were attached to the muscle. The leads were tunneled to the gluteal incision. The leads were connected to the generator which was then placed into the gluteal pocket. The generator was secured with a vicryl suture. All incisions were irrigated copiously. Hemostasis was ensured in the thoracic incision with the bipolar and Surgiflo. Stimulon beads were placed into both incisions. The fascia was closed with 0 vicryl. The dermis was closed with 2-0 and 3-0 vicryl. The dermis at the generator site was closed with 2-0 vicryl. The skin was closed at all incisions with 4-0 monocryl. Dermabond was then placed. The patient was returned supine, extubated, and transferred to PACU. Billing codes: 37344, 72256, 56354, 32946 Estimated Blood Loss 50 Drains No Packing No Pathology None sent Complications None Condition Stable Disposition PACU [facility] Billing Surgery - Charge Forward: Surgery Billing
[2024-07-20 15:29] LABS: Glucose Point of Care 134 mg/dl (65-105)
[2024-07-20] MEDS: oxyCODONE HCL (*CRX) 5 MG TAB IR PO (16:27)
== END 2024-07-20 16:49 | disposition home or self-care (01) ==
PROVIDERS: PCP Family Medicine; Visit Provider Neurological Surgery
PROC: (CPT 63661; principal; 2024-07-20 12:00)
DX: T85.122A Displacement of implanted electronic neurostimulator of spinal cord electrode (lead), initial encounter (principal); Y83.1 Surgical operation with implant of artificial internal device as the cause of abnormal reaction of the patient, or of later complication, without mention of misadventure at the time of the procedure; I10 Essential (primary) hypertension; E27.1 Primary adrenocortical insufficiency; E03.9 Hypothyroidism, unspecified; J45.909 Unspecified asthma, uncomplicated; E11.9 Type 2 diabetes mellitus without complications; F32.9 Major depressive disorder, single episode, unspecified; G89.29 Other chronic pain; M54.50 Low back pain, unspecified; W19.XXXA Unspecified fall, initial encounter; E66.01 Morbid (severe) obesity due to excess calories; Z68.43 Body mass index [BMI] 50.0-59.9, adult; Z79.82 Long term (current) use of aspirin; Z79.891 Long term (current) use of opiate analgesic; Z79.51 Long term (current) use of inhaled steroids; Z79.85 Long-term (current) use of injectable non-insulin antidiabetic drugs; Z98.890 Other specified postprocedural states; Z98.84 Bariatric surgery status; Z96.89 Presence of other specified functional implants; Z86.79 Personal history of other diseases of the circulatory system
CPT/HCPCS: 63661; 63685; 63655; 36415; 82948; 85730; 99199; A9270; C1778; J1100; J2003; J2250; J2405; J2704; J3010; J3370; J7120

== ENCOUNTER 2024-12-06 12:38 | Outpatient (CLI) | payer BC, SELFPAY ==
--- NOTE | ~2024-12-06 | CT_ITS ---
EXAMINATION: CT sinus wo con DATE: 12/06/2024 13:01 INDICATION: Chronic sinusitis TECHNIQUE: Computed tomography (CT) of the paranasal sinuses was performed without intravenous contrast. The dose-length product was 243.11 mGy-cm. Automated exposure control and iterative reconstruction technique were employed. COMPARISON: CT dated 03/31/2023 FINDINGS: There is mucosal thickening with air-fluid level in the left maxillary sinus, consistent with sinusitis. Remainder of the paranasal sinuses are unremarkable and pneumatized. Mastoids are pneumatized. Small left mastoid effusion. No significant nasal septal deviation. IMPRESSION: 1. Moderate left maxillary sinusitis. Reviewed, dictated and finalized at location A.
== END 2024-12-06 12:39 | disposition home or self-care (01) ==
LOC: CHSIMG 12:39
PROVIDERS: PCP Family Medicine; Visit Provider Otolaryngology
DX: J32.9 Chronic sinusitis, unspecified (principal); R09.82 Postnasal drip; R09.81 Nasal congestion; J34.89 Other specified disorders of nose and nasal sinuses
CPT/HCPCS: 70486

== ENCOUNTER 2024-12-13 11:41 | Outpatient (NON) | payer BC, SELFPAY | END 2024-12-13 11:42 | disposition home or self-care (01) | LOC: ANHGOSHLAB 11:42 | PROVIDERS: PCP Family Medicine; Visit Provider Otolaryngology | DX: J32.9 Chronic sinusitis, unspecified (principal) | CPT/HCPCS: 87070; 87075; 87205 ==

== ENCOUNTER 2025-01-09 08:58 | Outpatient (CLI) | payer BC, SELFPAY ==
--- OUTSIDE RECORDS SUMMARY | 2025-01-09 09:44 | XMS_ITS | Encounter Summary ---
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 Answer Date of Assessment Author Status No 06/06/2020 2:18 PM PATTERNMAKER APPRENTICE METAL Activ e * Do you have serious [...] on filedocumented in this encounter Care Teams Radar Repairer Relationship Specialty Start Date End Date Alfredo Schuler DO [facility] [place] [address] PCP - General FAMILY PRACTICE 01/02/21 documented as of this encounter
--- OUTSIDE RECORDS SUMMARY | 2025-01-09 09:44 | XMS_ITS | Encounter Summary ---
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 No / Unsure 06/06/2020 1:43 PM GUN STRIPER documented as of this encounter Functional Status * RETIRED Are you deaf or do you have serious difficulty hearing Answer Date of Assessment Author Status No 06/06/2020 2:18 PM GUN STRIPER Activ e * RETIRED Are you blind or do you have serious difficulty seeing, even when wearing glasses? Answer Date of Assessment Author Status No 06/06/2020 2:18 PM GUN STRIPER Activ e * Do you have serious difficulty walking or climbing stairs? Answer Date of Assessment Author Status No 06/06/2020 2:18 PM GUN STRIPER Bhavna Osborn RN Active * Do you [...] documented as of this encounter Care Teams Color Blender Relationship Specialty Start Date End Date Sg Ferraro MD PCP - General INTERNAL MEDICINE 06/08/18 01/01/21 Alfredo Schuler DO [address] [place] [address] PCP - General FAMILY PRACTICE 01/02/21 documented as of this encounter
--- OUTSIDE RECORDS SUMMARY | 2025-01-09 09:44 | XMS_ITS | Encounter Summary ---
Author Organization [facility] Address [facility] [place] [address] Care Team Providers Care Mis Director Name Role Phone Sg Ferraro MD Primary Care Provider [phone] Alfredo Schuler DO Primary Care Provider [phone] Encounter Details Date Type Department Care Team (Late st Contact Info) Description 09/25/2018 Abstract [facility] CONVERSION [address] [place] [id number] , Generic Conversion, Social History Tobacco Use Types Packs/Day Years Used Date Smoking Tobacco: Never Assessed Comments Unknown Sex and Gender Information Value Date Recorded Sex Assigned at Not on file Legal Sex Female 9:35 PM CDT Gender Identity Female 05/28/2021 5:00 AM CUSTOM WOOD STAIR BUILDER Sexual Orientation Straight 04/30/2021 9: 48 AM CUSTOM WOOD STAIR BUILDER documented as of this encounter Plan of Treatment Not on file documented as of this encounter Visit Diagnoses Not on filedocumented in this encounter Additional Health Concerns Infection Onset Date Last Indicated Resolved Time COVID-19 Rule Out 09/19/2019 09/19/2019 09/20/2019 4:26 AM CDT COVID-19 Rule Out 05/18/2020 05/18/2020 05/18/2020 2:56 PM CUSTOM WOOD STAIR BUILDER COVID-19 Confirmed Comment:Patients meets criteria for removal of isolation. IP discussed with Dr. Calloway. (SB) 05/18/2020 05/18/2020 06/08/2020 7:56 AM CUSTOM WOOD STAIR BUILDER COVID-19 Rule Out 02/21/2021 02/21/2021 02/21/2021 7:07 PM CDT COVID-19 Rule Out 08/05/2021 08/05/2021 08/06/2021 7:22 PM CDT COVID-19 Rule Out 01/02/2022 01/02/2022 01/02/2022 8:17 PM CDT documented as of this encounter Care Teams Mis Director Relationship Specialty Start Date End Date Sg Ferraro MD PCP - General INTERNAL MEDICINE 06/08/18 01/01/21 Alfredo Schuler DO [address] [place] [address] PCP - General FAMILY PRACTICE 01/02/21 documented as of this encounter
--- OUTSIDE RECORDS SUMMARY | 2025-01-09 09:44 | XMS_ITS | Encounter Summary ---
Author Organization [facility] Address [facility] [place] [address] Care Team Providers Care Work Car Operator Name Role Phone RekhaAlfredo torres Primary Care Provider Encounter Details Date Type Department Care Team (Late st Contact Info) Description 09/23/2022 [employer] Message Enc [facility] [place] [address] Terrell Lees MD [address] [place] [address] Visit Follow Up Social History Tobacco Use [...] CDT Gender Identity Female 05/28/2021 5:00 AM INFORMATICA DEVELOPER Sexual Orientation Straight 04/30/2021 9: 48 AM INFORMATICA DEVELOPER COVID-19 Exposure Response Date Recorded In the last 10 days, have yo u been in contact with someone who was confirmed or suspected to have Coronavirus/COVID-19? No / Unsure 09/23/2022 8:30 AM CDT documented as of this encounter Functional Status * RETIRED Are you deaf or do you have serious difficulty hearing Answer Date of Assessment Author Status No 06/06/2020 2:18 PM INFORMATICA DEVELOPER Acti ve * RETIRED Are you blind or do you have serious difficulty seeing, even when wearing glasses? Answer Date of Assessment Author Status No 06/06/2020 2:18 PM INFORMATICA DEVELOPER Activ e * Do you have [...] on filedocumented in this encounter Care Teams Work Car Operator Relationship Specialty Start Date End Date Alfredo Schuler DO [facility] [place] [address] PCP - General FAMILY PRACTICE 01/02/21 documented as of this encounter
--- OUTSIDE RECORDS SUMMARY | 2025-01-09 09:44 | XMS_ITS | Clinical Summary ---
Author Organization [facility] Address [facility] [place] [address] Care Team Providers Care Patient Case Coordinator Name Role Phone GangaAlfredo Primary Care Provider [phone] Allergies Active Allergy Reactions Criticality Noted Date [...] CDT Gender Identity Female 05/28/2021 5:00 AM PAPERHANGER AND PAINTER Sexual Orientation Straight 04/30/2021 9: 48 AM PAPERHANGER AND PAINTER Last Filed Vital Signs Vital Sign Reading [...] 1:51 PM CDT Height 157.5 cm (5' 2) 02/03/2024 1:51 PM CDT Body Mass Index [...] 5 Years 2001 Mammogram Screening 03/24/2021 03/24/2019 Pneumococcal Vaccine: 50+ Years (2 of 2 - PCV) 2021 05/30/2014 Zoster Vaccines (1 of 2) 2021 Cervical Cancer Screening Pa p Smear (Age 30 to 64) Every 3 Years 06/26/2023 06/25/2020 Cervical Cancer Screening wi th HPV 06/26/2023 COVID-19 Vaccine (1 - 2023-2 5 season) 2024 DTaP, Tdap and Td Vaccines ( 2 - Td or Tdap) 04/12/2026 04/12/2016, 01/18/2010 Meningococcal B Vaccine Aged Out No l onger eligible based on patient's age to complete this topic Meningococcal Vaccine Aged Out No rick kelley eligible based on patient's age to complete this topic RSV Immunizations Under 20 Months Aged Out No longer eligible b ased on patient's age to complete this topic Medical Devices Implanted Type Area Rn Chemical Dependency Device Identifier Shelf Expiration Date Model / Serial / Lot Stimulator Lead-07/04/2022 Implanted:Qty: 2 on 07/04/2022 Lead Implant Spine Thoracic [employer] CARDIAC RHYTHM AND HEART FAILURE - DIV M [id number] / / Description:2 LEADS Stimulator Implant- 023 Implanted:Qty: 1 on 07/04/2022 Stimulator Implant [employer] CARDIAC RHYTHM AND HEART FAILURE - DIV Coupz [id number] / [id number] / Description:MR Conditional a t 1.5 T only, Should be full body eligible but need remote to check, need remote to turn off stimulation, Normal DELROY, Max 30 minutes scan time in 90 minute window Explanted Type Area Rn Chemical Dependency Device Identifier Shelf Expiration Date Model / Serial / Lot Bur Vortex 6.0mm - [id number] Explanted:Qty: 1 on 09/21/2019 at [facility] The Original [employer] [facility] [id number] / / Procedures Procedure Name Priority Date/Time Associated Diagnosis Comments CYTOPATH CERV/VAG THIN LAYER Routine 06/25/2020 1:36 PM PAPERHANGER AND PAINTER MG SCREENING W GUILLERMO RIO DIGI Routine 03/24/2019 9:16 AM PAPERHANGER AND PAINTER Screening for breast cancer from Last 3 Months or Most Recently Relevant to Health Maintenance Results * Cytopath Cerv/Vag Thin Layer (06/25/2020 1:36 PM PAPERHANGER AND PAINTER) THIN PREP PAP [address] [address] Department of Pathology Pathology Report CERVICAL/VAGINAL PAP SMEAR REPORT Name: RORO BA Age: 12 1970 (Age: 50) Location: [facility] Sex: F Collected Date: 06/25/2020 [facility] #: [id number] Date Received: 06/27/2020 Date Reported: 07/02/2020 Provider: [...] Z12.4 SCREENING ABNORMAL/POST MENOPAUSAL BLEEDING PAP AND FIRE BOAT ENGINEER SURGICAL HISTORY - UNKNOWN ThinPrep Pap Test [...] is not effective in detecting cervical adenocarcinoma. [facility] 06/25/2020 1:36 PM PAPERHANGER AND PAINTER 06/27/2020 1:36 PM PAPERHANGER AND PAINTER Comment:CERVICAL/ENDOCERVICA L us Vasyl Coto MD PATHOLOGY/CYTOLOGY ORDERABLES Final Result [facility] [address] [place] [address], [place] [phone] [id number] [facility] [address] [place], [place] [address] [phone] * MG SCREENING W GUILLERMO RIO DIGI (03/24/2019 9:16 AM PAPERHANGER AND PAINTER) Anatomical Region Laterality Modality Breast Bilateral Mammography 03/28/2019 2:57 PM PAPERHANGER AND PAINTER Impressions 03/28/2019 2:58 PM PAPERHANGER AND PAINTER IMPRESSION: Moderately dense breasts. No mammographic evidence of malignancy. Recommendation: 1: Routine screening mammogram Bilateral in 1 Year Assessment: ACR BI-RADS Category 2 - Benign. Interpreted By: Harish Hernandez, 03/28/2019 2:57 PM Narrative 03/28/2019 2:58 PM PAPERHANGER AND PAINTER Examination: Digital screening mammogram with CAD. Clinical [...] 2:31 PM 06/08/2020 6:23 PM Care Teams Patient Case Coordinator Relationship Specialty Start Date End Date Alfredo Schuler DO [address] [place] [address] PCP - General FAMILY PRACTICE 01/02/21
--- OUTSIDE RECORDS SUMMARY | 2025-01-09 09:44 | XMS_ITS | Encounter Summary ---
Author Organization [facility] Address [facility] [place] [address] Care Team Providers Care Hydraulic Lift Driver Name Role Phone RekhaAlfredo torres Primary Care Provider [phone] Encounter Details Date Type Department Care Team (Late st Contact Info) Description 02/03/2024 Vizy Message Enc [place] [phone] Moisés Bone MD Visit Follow Up Social History Tobacco Use [...] Gender Identity Female 05/28/2021 5:00 AM COMPUTER PROJECT MANAGER Sexual Orientation Straight 04/30/2021 9: 48 AM COMPUTER PROJECT MANAGER documented as of this encounter Functional Status * RETIRED Are you deaf or do you have serious difficulty hearing Answer Date of Assessment Author Status No 06/06/2020 2:18 PM COMPUTER PROJECT MANAGER Activ e * RETIRED Are you blind or do you have serious difficulty seeing, even when wearing glasses? Answer Date of Assessment Author Status No 06/06/2020 2:18 PM COMPUTER PROJECT MANAGER Activ e * Do you have serious difficulty walking or climbing stairs? Answer Date of Assessment Author Status No 06/06/2020 2:18 PM COMPUTER PROJECT MANAGER Bhavna Osborn RN Active * Do you [...] on filedocumented in this encounter Care Teams Hydraulic Lift Driver Relationship Specialty Start Date End Date Alfredo Schuler DO [address] [place] [address] PCP - General FAMILY PRACTICE 01/02/21 documented as of this encounter
--- OUTSIDE RECORDS SUMMARY | 2025-01-09 09:44 | XMS_ITS | Encounter Summary ---
Author Organization [facility] Address [facility] [place] [address] Care Team Providers Care Roll Capper Name Role Phone RekhaAlfredo torres Primary Care Provider [phone] Encounter Details Date Type Department Care Team (Late st Contact Info) Description 01/08/2023 Avtodoria Message Enc [facility] [place] [address] Terrell Lees MD [address] [place] [address] Visit Follow Up Social History Tobacco Use [...] CDT Gender Identity Female 05/28/2021 5:00 AM REELING MACHINE SETUP OPERATOR Sexual Orientation Straight 04/30/2021 9: 48 AM REELING MACHINE SETUP OPERATOR documented as of this encounter Functional Status * RETIRED Are you deaf or do you have serious difficulty hearing Answer Date of Assessment Author Status No 06/06/2020 2:18 PM REELING MACHINE SETUP OPERATOR Activ e * RETIRED Are you blind or do you have serious difficulty seeing, even when wearing glasses? Answer Date of Assessment Author Status No 06/06/2020 2:18 PM REELING MACHINE SETUP OPERATOR Activ e * Do you have [...] on filedocumented in this encounter Care Teams Roll Capper Relationship Specialty Start Date End Date Alfredo Schuler DO [facility] [place] [address] PCP - General FAMILY PRACTICE 01/02/21 documented as of this encounter
--- OUTSIDE RECORDS SUMMARY | 2025-01-09 09:44 | XMS_ITS | Encounter Summary ---
Author Organization [facility] Address [facility] [place] [address] Care Team Providers Care Jail Keeper Name Role Phone RekhaAlfredo torres Primary Care Provider [phone] Encounter Details Date Type Department Care Team (Late st Contact Info) Description 11/25/2023 Click With Me Now Message Enc [place] [phone] Moisés Bone MD Visit Follow Up Social [...] CDT Gender Identity Female 05/28/2021 5:00 AM HANDBELL CHOIR DIRECTOR Sexual Orientation Straight 04/30/2021 9: 48 AM HANDBELL CHOIR DIRECTOR documented as of this encounter Functional Status * RETIRED Are you deaf or do you have serious difficulty hearing Answer Date of Assessment Author Status No 06/06/2020 2:18 PM HANDBELL CHOIR DIRECTOR Activ e * RETIRED Are you blind or do you have serious difficulty seeing, even when wearing glasses? Answer Date of Assessment Author Status No 06/06/2020 2:18 PM HANDBELL CHOIR DIRECTOR Activ e * Do you have serious difficulty walking or climbing stairs? Answer Date of Assessment Author Status No 06/06/2020 2:18 PM HANDBELL CHOIR DIRECTOR Bhavna Osborn RN Active * Do you [...] on filedocumented in this encounter Care Teams Jail Keeper Relationship Specialty Start Date End Date Alfredo Schuler DO [address] [place] [address] PCP - General FAMILY PRACTICE 01/02/21 documented as of this encounter
--- OUTSIDE RECORDS SUMMARY | 2025-01-09 09:44 | XMS_ITS | Encounter Summary ---
Author Organization [facility] Address [facility] [place] [address] Care Team Providers Care Milk Hauler Name Role Phone gS Ferraro MD Primary Care Provider [phone] Alfredo Schuler DO Primary Care Provider [phone] Encounter Details Date Type Department Care Team (Late st Contact Info) Description 06/11/2020 Hospital Follow-up Call [facility] [address] [place], [place] [id number] Eusebia العراقي RN Social History Tobacco Use [...] CDT Gender Identity Female 05/28/2021 5:00 AM HEALTH PROMOTER Sexual Orientation Straight 04/30/2021 9: 48 AM HEALTH PROMOTER COVID-19 Exposure Response Date Recorded In the last month, have you been in contact with someone who was confirmed or suspected to have Coronavirus / COVID-19? No / Unsure 06/06/2020 1:43 PM HEALTH PROMOTER documented as of this encounter Functional Status * RETIRED Are you deaf or do you have serious difficulty hearing Answer Date of Assessment Author Status No 06/06/2020 2:18 PM HEALTH PROMOTER Activ e * RETIRED Are you blind or do you have serious difficulty seeing, even when wearing glasses? Answer Date of Assessment Author Status No 06/06/2020 2:18 PM HEALTH PROMOTER Activ e * Do you have serious difficulty walking or climbing stairs? Answer Date of Assessment Author Status No 06/06/2020 2:18 PM HEALTH PROMOTER Bhavna Osborn RN Active * Do you [...] documented as of this encounter Care Teams Milk Hauler Relationship Specialty Start Date End Date Sg Ferraro MD PCP - General INTERNAL MEDICINE 06/08/18 01/01/21 Alfredo Schuler DO [address] [place] [address] PCP - General FAMILY PRACTICE 01/02/21 documented as of this encounter
[2025-01-14 00:07] LABS: Pneumo Ab Type 17 (17F)* 5.5 ug/mL (>1.3); Pneumo Ab Type 2* 5.8 ug/mL (>1.3); Pneumo Ab Type 20* 1.9 ug/mL (>1.3); Pneumo Ab Type 22 (22F)* <0.1 ug/mL (>1.3); Pneumo Ab Type 34 (10A)* <0.1 ug/mL (>1.3); Pneumo Ab Type 43 (11A)* 0.6 ug/mL (>1.3); Pneumo Ab Type 5* 0.4 ug/mL (>1.3); Pneumo Ab Type 54 (15B)* 5.0 ug/mL (>1.3); Pneumo Ab Type 70 (33F)* 3.3 ug/mL (>1.3)
== END 2025-01-09 08:59 | disposition home or self-care (01) ==
PROVIDERS: PCP Family Medicine; Visit Provider Otolaryngology
DX: D84.9 Immunodeficiency, unspecified (principal)
CPT/HCPCS: 86581

== ENCOUNTER 2025-03-15 13:41 | Outpatient (NON) | payer BC, SELFPAY ==
--- OUTSIDE RECORDS SUMMARY | 2025-03-15 13:48 | XMS_ITS | Data Portability ---
Author Organization [facility], [address] [facility] ([place]) Address [address] [place] [address] Care Team Providers Care Chief Merchandising Officer Name Role Phone VIJAY CHAVEZ Primary Care Provider Assessment No assessment recorded. Plan of Treatment Reminders Order Date Submit Date Provider Last Modified By Organization Details Last Modified Time Details Appointments None record ed. Lab None record ed. Referral None record ed. Procedures None record ed. Surgeries None record ed. Imaging None record ed. Medication Orders None record ed. Patient TargetsNo targets recorded. Patient InstructionsNo instructions recorded. Reason for Referral None Reported. Problems Name Problem SNOMED Code Status Onset Date Resolution Date Notes Provider Name and Address Organization Details Recorded Time Asthma 202268083 Active 2023 Cresencio Ramónbaldo [facility] 4 12:14:04 Hypertensive disorder 81592512 Active 2023 Brenda Gonsalez MD [address] [place] [address], [phone], [facility] 4 10:18:47 Fatigue 56735909 Active 2023 Brenda Gonsalez MD [address] [place] [address], [phone], [facility] 4 10:30:34 Problem Notes None recorded. Procedures Surgical History [...] Name and Address Organization Details Recorded Time 496442 Ceftin medicatio n Not available Not available Not available 05/18/20232018 10195 6 RxNorm Not Available [facility] 4 23:30:37 Medications Name Sig Start Date Stop Date Status Note LastModified by Organization Details LastModified Time celecoxib 200 mg capsule active Not Available Not Available Not Available cyclobenzap rine 10 mg tablet active Not Available Not Available Not Available atorvastati n 40 mg tablet active Not Available Not Available Not Available prednisone 10 mg tablet active Not Available Not Available Not Available doxycycline hyclate 100 mg capsule TAKE 1 CAPSULE BY MOUTH TWICE DAILY 02/11 completed Not Available Not Available Not Available ipratropium 0.5 mg-albutero l 3 mg (2.5 mg base)/3 mL nebulizatio n soln Inhale 3 mL 4 times a day by nebulizat ion route as needed. active Not Available Not Available No t Available azithromyci n 250 mg tablet active Not Available Not Available Not Available prednisone 20 mg tablet active Not Available Not Available Not Available venlafaxine ER 150 mg capsule,ext ended release 24 hr active Not Available Not Available Not Available potassium chloride ER 10 mEq tablet,exte nded release active Not Available Not Available Not Available omeprazole 40 mg capsule,del ayed release active Not Available Not Available Not Available tramadol 50 mg tablet active Not Available Not Available No t Available levothyroxi ne 50 mcg tablet active Not Available Not Available Not Available montelukast 10 mg tablet active Not Available Not Available Not Available hydrocortis one 10 mg tablet active Not Available Not Available Not Available albuterol sulfate HFA 90 mcg/actuati on aerosol inhaler Inhale 2 puffs every 4 hours by inhalatio n route. 2024 active Not Available Not Available Not Avai lable losartan 50 mg-hydrochl orothiazide 12.5 mg tablet active Not Available Not Available Not Available ipratropium bromide 21 mcg (0.03 %) nasal spray active Not Available Not Available Not Available amoxicillin 875 mg-potassiu m clavulanate 125 mg tablet TAKE 1 TABLET BY MOUTH TWICE DAILY FOR 10 DAYS active Not Available Not Available No t Available pregabalin 150 mg capsule active Not Available Not Available Not Available ipratropium 0.5 mg-albutero l 2.5 mg/2.5 mL solution for nebulizatio n Inhale 3 mL 4 times a day by inhalatio n route as needed. active Not Available Not Available No t Available Trulicity 1.5 mg/0.5 mL subcutaneou s pen injector ADMINISTE R 1.5 MG UNDER THE SKIN WEEKLY active Not Available Not Available No t Available Trulicity 0.75 mg/0.5 mL subcutaneou s pen injector ADMINISTE R 0.75 MG UNDER THE SKIN WEEKLY active Not Available Not Available No t Available Breo Ellipta 200 mcg-25 mcg/dose powder for inhalation Inhale 1 puff every day by inhalatio n route as directed. active Not Available Not Available No t Available Xhance 93 mcg/actuati on breath activated aerosol 2 SPRAY INTRANASA LLY EVERY 12 HOURS; INTO EACH NOSTRIL active Not Available Not Available No t Available Vitals Date Recorded Body height Body mass index (BMI) Body weight Body temperature Heart rate Respiratory rate Oxygen saturation Systolic And Diastolic Provider Name and Address Organization Details Last Updated DateTime 4 157.48 cm 57.8 kg/m2 286029. 19 g 97.5 [degF] 117 /min 18 /min 97 % 159/122 mm[Hg] [facility] 10:[facility]27 Social History Question Answer Notes LastModified by Organizat ion Details LastModified Time Tobacco Smoking Status Former Smoker Not Available Health Note 01/20/2024 09:59:53 Do You Have An Advance Directive? No [email or web address] Information not available 01/20/2024 What Is Your Level Of Caffeine Consumption? Heavy [email or web address] Information not available 01/20/2024 How Many Times Per Week Do You Exercise? 1-2 Times Per Week [email or web address] Information not available 01/20/2024 How Many Packs Per Day (PPD)? 1 Information not available 01/26/2024 How Long Have You Smoked? 1 Year Information not available 01/26/2024 When Did You Quit Smoking? 2002 [email or web address] Information not available 01/20/2024 Do You Have A Medical Power Of Mold Presser? No [email or web address] Information not available 01/20/2024 What Was The Date Of Your Most Recent Tobacco Screening? 01/26/2024 [email or web address] Information not available 01/20/2024 What Is Your Relationship Status? [email or web address] Information not available 01/20/2024 Sex: Unknown Functional Status Question Answer Note LastModified by Organizat ion Details LastModified Time How many times per week do you consume alcohol? Less than 1 time per week [email or web address] Information not available 01/20/2024 Do you use any illicit or recreational drugs? No [email or web address] Information not available 01/20/2024 What is your level of alcohol consumption? Occasional [email or web address] Information not available 01/20/2024 Are you currently employed? 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 Occasional [email or web address] [...] available 2023 09:59:52 Medical History Condition Response Anxiety Disorder Y Diabetes N Attention-deficit Hyperactivity Disorder N Bleeding Disorder N High Blood Pressure Y Arthritis N Hyperlipidemia N Cancer N Stroke N Thyroid Problems Y Asthma Y Depression Y COPD N Anemia N Seizures N Heart Disease N Fibromyalgia Y Osteoporosis N Kidney Disease N Gynecological HistoryNo gynecological history recorded. Obstetrics History GPAL:G 0 P 0 0 0 0 Past Encounters Encounter ID Performer Location Encounter Start Date Encounter Closed Date Diagnosis/Indication Diagnosis SNOMED-CT Code Diagnosis ICD10 Code Diagnosis IMO Codes Diagnosis Note [id number] Brenda Gonsalez MD [facility] ([place]) [address] [place] [address] 01/26/2024 10:09:58 01/26/2024 11:34:14 Asthma 455106598 J45.909 On a combinatio n of Breo [...] with the Breo inhaler. Hypertensive disorder 38 340299 I10 Blood pressure significan tly elevated at [...] headache, visual changes, dizziness, chest pain. Fatigue 34781904 R53.83 Patient has a longstandi ng fatigue with chronic sleep disturbanc es and uncontroll ed blood pressure. I have a high suspicion for underlying sleep apnea and we will get her set up with a split-nigh t sleep study, and trial of PAP if positive. Will get this arranged through [facility]. Health Concerns Section Related Observation LastModified by Organization Detai ls LastModified Time None Recorded Concern Status LastModified by Organization Details LastModified Time None Recorded Advance Directives Directive N: Payers Insurance Date Sequence Insurance Name Policy Number Policy Sorto Covered Member ID Sorto Member ID Guarantor Name 02/09/2025 1 [place] [id number] Roro Bowens [id number] Roro Bowens 01/27/2025 SELF PAY REQUESTED Roro Bowens 01/27/2025 SELF PAY OUT OF NETWORK BCBS Roro Bowens Notes Date Note Type Note Provider Name and Address Organization Details Recorded Time 01/26/2024 text/html [facility] Outreach clinic [age]-year-old who comes in to pulmonary clinic for [...] congestion. 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 P MHx: adrenal insufficiency, asthma, chronic sinusitis, HTN, MDD, migraines, hypothyroidism S urgHx: Gastric surgery, right knee surgery S ocHx: Never smoker, rare alcohol F amHx: mom with asthma P atient goes by Karen marcumed by Katya at [facility] Brenda Gonsalez MD [address] [place] [address], [phone], [place] [facility] 01/26/2024 10:34:09 OBGyn Episode No OBEpisode recorded.
== END 2025-03-15 13:42 | disposition home or self-care (01) ==
PROVIDERS: PCP Family Medicine; Visit Provider Otolaryngology
DX: J32.9 Chronic sinusitis, unspecified (principal)
CPT/HCPCS: 87070; 87075; 87205

== ENCOUNTER 2025-03-27 00:44 | Day surgery (SDC) | payer BC, SELFPAY ==
[2025-03-22 15:14] VITALS: BMI 54.4
--- NOTE | 2025-03-22 15:57 | PC.NURSE ---
-PLEASE GIVE TO PATIENT AT THE TIME OF LAB TESTING * PLEASE GIVE TO PATIENT AT THE TIME OF LAB TESTING [facility] has started construction of its new state of the art ER which will open Spring 2026. With this, we anticipate parking may be a challenge for some our surgical patients and families. Parking spaces are limited but are available for all Surgical, obstetrics, and ER patients sharing this lot. If you arrive and find you are having a hard time finding a parking space, please note that we understand the challenges, please drive around the hospital and park near Hospital Entrance 1. When you enter this entrance, you can ask a volunteer to direct or take you back to the surgical waiting area to check in. We appreciate everyone?s understanding of these expected challenges while we build for your future. Report to the Outpatient Waiting Room, entrance under the green pavilion located off [address], at time _0900 on date __03/27/25 . Planned Procedure Time: _1100 .? Time changes happen often and if your time is changed the preop area will call you the afternoon before. - You and your visitor will be asked to self-screen and do not enter if you have any COVID symptoms. Please call surgeon if you need to reschedule. - A mask is optional within the hospital at this time. Patients may have clear liquids (water, carbonated beverages, clear teas, apple juice) until 3 hours prior to surgery with a maximum of 20 ounces. - No food from midnight until time of surgery and no smoking, or chewing tobacco (or any form of nicotine). No chewing gum, candy or mints. - Take only the following medications with a SIP of water on the morning of surgery: _ MAINTENANCE INHALERS; PRN ALBUTEROL INHALERS NEEDED; HYDROCORTISONE; LEVOTHYROXINE; PREGBALIN; VENLAFAXINE DO NOT STOP ANY OF YOUR OTHER PRESCRIPTION MEDICATIONS PRIOR TO SURGERY EXCEPT THE FOLLOWING Hold all vitamins and supplements for 3 days per anesthesiologist. Medications to discontinue per physician Date to take last dose Please no make-up, nail angolan, hairspray, perfume, deodorant, or body powder the day of surgery.? No jewelry (including any body piercings) or valuables the day of surgery, leave them at home.? Please take a shower or bath the night before, or the morning of, surgery with an antibacterial soap.? Wear comfortable, loose fitting clothing.? - Jewelry must be removed prior to entering the operating room.? Rings and piercings that are not removed may be cut off. - The hospital will not accept responsibility for valuables.? - Please leave all valuables, including medications, at home the day of surgery. If you are going home after surgery, a licensed warehouse driver must drive you home.? - NO public transportation without another adult if you receive anesthesia. - We recommend that an adult stay with you for 24 hours following discharge. - We also recommend that you do not drive, make important decision, drink alcoholic beverages, or take any drugs that were not prescribed by your health care provider for at least 24 hours after your discharge time. Follow any additional instructions given to you from your surgeon. Telephone instructions given to ____DEBBIE and asked if any additional questions and then verbalized understanding. Patient advised to call surgeon office or pre surgery nurse liaison [phone] if any additional questions.
[2025-03-27] VITALS (8 sets, daily range): BP systolic 126–157; BP diastolic 69–107; PULSE 72–99; RESP 14–18; TEMP 35.9–36.2; O2SAT 95–100
--- OUTSIDE RECORDS SUMMARY | 2025-03-27 00:47 | XMS_ITS | Encounter Summary ---
Author Organization [facility] Address [facility] [place] [address] Care Team Providers Care Nuisance Wildlife Trapper Name Role Phone RekhaAlfredo torres Primary Care Provider [phone] Encounter Details Date Type Department Care Team (Late st Contact Info) Description 03/24/2025 Orders Only [facility] [address] [place] [address] Geovany Tejada MD [address] [address] Social History Tobacco Use Types Packs/Day Years [...] CDT Gender Identity Female 05/28/2021 5:00 AM BUNDLE WRAPPER Sexual Orientation Straight 04/30/2021 9: 48 AM BUNDLE WRAPPER documented as of this encounter Functional Status * RETIRED Are you deaf or do you have serious difficulty hearing Answer Date of Assessment Author Status No 06/06/2020 2:18 PM BUNDLE WRAPPER Activ e * RETIRED Are you blind or do you have serious difficulty seeing, even when wearing glasses? Answer Date of Assessment Author Status No 06/06/2020 2:18 PM BUNDLE WRAPPER Activ e * Do you have serious difficulty walking or climbing stairs? Answer Date of Assessment Author Status No 06/06/2020 2:18 PM BUNDLE WRAPPER Bhavna Osborn RN Active * Do you have difficulty dressing or bathing? Answer Date of Assessment Author Status No 06/06/2020 2:18 PM BUNDLE WRAPPER Bhavna Osborn RN Active * Because of [...] Date Author Status No 06/06/2020 2:18 PM BUNDLE WRAPPER Bhavna Osborn RN Active documented in this encounter Plan of Treatment Not on file documented as of this encounter Results * (ABNORMAL) BASIC METABOLIC PANEL (03/24/2025 3:00 PM [facility]) SODIUM S/P/B 141 136 - 145 MMOL/L 03/24/2025 3:16 PM [facility] POTASSIUM S/P/B 3.9 3.5 - 5.1 MMOL/L 03/24/2025 3:16 PM [facility] CHLORIDE S/P/B 103 98 - 107 MMOL/L 03/24/2025 3:16 PM [facility] CO2 28.1 21.0 - 32.0 MMOL/L 03/24/2025 3:16 PM [facility] GLUCOSE 169(H) 70 - 99 MG/DL 03/24/2025 3:16 PM [facility] Comment: FASTING GLUCOSE 100 TO 125 MG/DL IS CONSISTENT WITH IMPAIRED FASTING GLUCOSE. FASTING GLUCOSE >125 MG/DL IS CONSISTENT WITH DIABETES. RANDOM GLUCOSE >200 MG/DL WITH HYPERGLYCEMIC SYMPTOMS IS CONSISTENT WITH DIABETES. PER ADA GUIDELINES BUN 18 6 - 24 MG/DL 03/24/2025 3:16 PM [facility] CREATININE S/P/B 0.91 0.55 - 1.02 MG/DL 03/24/2025 3:16 PM [facility] CALCIUM S/P/B 9.6 8.4 - 10.5 MG/DL 03/24/2025 3:16 PM BUNDLE WRAPPER [facility] ANION GAP 9.9 5.0 - 15.0 MMOL/L 03/24/2025 3:16 PM BUNDLE WRAPPER [facility] OSMOLALITY (CALC) 298 MOSM/KG 025 3:16 PM [facility] Comment:REFERENCE RANGE NOT ESTABLISHED GFR ESTIMATE 75(L) >89 ML/MIN/1. 73 M2 03/24/2025 3:16 PM BUNDLE WRAPPER [facility] GFR NOTES GFR REFERENCE S: 03/24/2025 3:16 PM [facility] Comment: THE ESTIMATED GFR IS CALCULATED USING THE 2020 CKD-EPI EQUATION. THE FOLLOWING CATEGORIES FOR GRADING RENAL FUNCTION ARE RECOMMENDED BY THE INTERNATIONAL SOCIETY OF NEPHROLOGY (KDIGO 2012 CLINICAL PRACTICE GUIDELINE). G1,NORMAL OR HIGH: >89 ml/min/1.73 m2 G2,MILDLY DECREASED: 60-89 ml/min/1.73 m2 G3A,MILDLY TO MODERATELY DECREASED: 45-59 ml/min/1.73 m2 G3B,MODERATELY TO SEVERELY DECREASED: 30-44 ml/min/1.73 m2 G4,SEVERELY DECREASED: 15-29 ml/min/1.73 m2 G5,KIDNEY FAILURE: <15 ml/min/1.73 m2 BLOOD VENOUS BLOOD SPECIMEN / Unknown 03/24/2025 3:00 PM BUNDLE WRAPPER us Geovany Tejada MD LABORATORY Final Result [facility] [address] [place] [address], documented in this encounter Visit Diagnoses Diagnosis Diabetes (CMS/HCC HHS/HCC)- Primary Adrenal insufficiency (HHS/HCC) Glucocorticoid deficiency documented in this encounter Care Teams Nuisance Wildlife Trapper Relationship Specialty Start Date End Date Alfredo Schuler DO [address] [place] [address] PCP - General FAMILY PRACTICE 01/02/21 documented as of this encounter
--- OUTSIDE RECORDS SUMMARY | 2025-03-27 00:47 | XMS_ITS | Encounter Summary ---
Author Organization [facility] Address [facility] [place] [address] Care Team Providers Care Surveying Crew Rodman Name Role Phone Sg Ferraro MD Primary Care Provider [phone] Alfredo Schuler DO Primary Care Provider [phone] Encounter Details Date Type Department Care Team (Late st Contact Info) Description 09/25/2018 Abstract [facility]FL CONVERSION [address] [place] [id number] , Generic Conversion, Social History Tobacco Use Types Packs/Day Years Used Date Smoking Tobacco: Never Assessed Comments Unknown Sex and Gender Information Value Date Recorded Sex Assigned at Not on file Legal Sex Female 9:35 PM CDT Gender Identity Female 05/28/2021 5:00 AM UTILITY LOCATOR Sexual Orientation Straight 04/30/2021 9: 48 AM UTILITY LOCATOR documented as of this encounter Plan of Treatment Not on file documented as of this encounter Visit Diagnoses Not on filedocumented in this encounter Additional Health Concerns Infection Onset Date Last Indicated Resolved Time COVID-19 Rule Out 09/19/2019 09/19/2019 09/20/2019 4:26 AM CDT COVID-19 Rule Out 05/18/2020 05/18/2020 05/18/2020 2:56 PM UTILITY LOCATOR COVID-19 Confirmed Comment:Patients meets criteria for removal of isolation. IP discussed with Dr. Calloway. (SB) 05/18/2020 05/18/2020 06/08/2020 7:56 AM UTILITY LOCATOR COVID-19 Rule Out 02/21/2021 02/21/2021 02/21/2021 7:07 PM CDT COVID-19 Rule Out 08/05/2021 08/05/2021 08/06/2021 7:22 PM CDT COVID-19 Rule Out 01/02/2022 01/02/2022 01/02/2022 8:17 PM CDT documented as of this encounter Care Teams Surveying Crew Rodman Relationship Specialty Start Date End Date Sg Ferraro MD PCP - General INTERNAL MEDICINE 06/08/18 01/01/21 Alfredo Schuler DO [address] [place] [address] PCP - General FAMILY PRACTICE 01/02/21 documented as of this encounter
--- OUTSIDE RECORDS SUMMARY | 2025-03-27 00:47 | XMS_ITS | Encounter Summary ---
Author Organization [facility] Address [facility] [place] [address] Care Team Providers Care Antenna Engineer Name Role Phone Sg Ferraro MD Primary Care Provider [phone] Alfredo Schuler DO Primary Care Provider [phone] Encounter Details Date Type Department Care Team (Late st Contact Info) Description 06/11/2020 Hospital Follow-up Call [facility] [address] [place], [place] [id number] Eusebia العراقي RN Social History Tobacco Use [...] CDT Gender Identity Female 05/28/2021 5:00 AM PRESCHOOL HEAD TEACHER Sexual Orientation Straight 04/30/2021 9: 48 AM PRESCHOOL HEAD TEACHER COVID-19 Exposure Response Date Recorded In the last month, have you been in contact with someone who was confirmed or suspected to have Coronavirus / COVID-19? No / Unsure 06/06/2020 1:43 PM PRESCHOOL HEAD TEACHER documented as of this encounter Functional Status * RETIRED Are you deaf or do you have serious difficulty hearing Answer Date of Assessment Author Status No 06/06/2020 2:18 PM PRESCHOOL HEAD TEACHER Activ e * RETIRED Are you blind or do you have serious difficulty seeing, even when wearing glasses? Answer Date of Assessment Author Status No 06/06/2020 2:18 PM PRESCHOOL HEAD TEACHER Activ e * Do you have serious difficulty walking or climbing stairs? Answer Date of Assessment Author Status No 06/06/2020 2:18 PM PRESCHOOL HEAD TEACHER Bhavna Osborn RN Active * Do you [...] documented as of this encounter Care Teams Antenna Engineer Relationship Specialty Start Date End Date Sg Ferraro MD PCP - General INTERNAL MEDICINE 06/08/18 01/01/21 Alfredo Schuler DO [address] [place] [address] PCP - General FAMILY PRACTICE 01/02/21 documented as of this encounter
--- OUTSIDE RECORDS SUMMARY | 2025-03-27 00:47 | XMS_ITS | Encounter Summary ---
Author Organization [facility] Address [facility] [place] [address] Care Team Providers Care Keyboard Operator Name Role Phone Sg Ferraro MD Primary Care Provider [phone] Alfredo Schuler DO Primary Care Provider [phone] Encounter Details Date Type Department Care Team (Late st Contact Info) Description 06/11/2020 Hospital Follow-up Call [facility] [address] [place], [place] [id number] Eusebia العراقي RN Social History Tobacco Use [...] CDT Gender Identity Female 05/28/2021 5:00 AM DEWATERER OPERATOR Sexual Orientation Straight 04/30/2021 9: 48 AM DEWATERER OPERATOR COVID-19 Exposure Response Date Recorded In the last month, have you been in contact with someone who was confirmed or suspected to have Coronavirus / COVID-19? No / Unsure 06/06/2020 1:43 PM DEWATERER OPERATOR documented as of this encounter Functional Status * RETIRED Are you deaf or do you have serious difficulty hearing Answer Date of Assessment Author Status No 06/06/2020 2:18 PM DEWATERER OPERATOR Activ e * RETIRED Are you blind or do you have serious difficulty seeing, even when wearing glasses? Answer Date of Assessment Author Status No 06/06/2020 2:18 PM DEWATERER OPERATOR Activ e * Do you have serious difficulty walking or climbing stairs? Answer Date of Assessment Author Status No 06/06/2020 2:18 PM DEWATERER OPERATOR Bhavna Osborn RN Active * Do you [...] documented as of this encounter Care Teams Keyboard Operator Relationship Specialty Start Date End Date Sg Ferraro MD PCP - General INTERNAL MEDICINE 06/08/18 01/01/21 Alfredo Schuler DO [address] [place] [address] PCP - General FAMILY PRACTICE 01/02/21 documented as of this encounter
--- OUTSIDE RECORDS SUMMARY | 2025-03-27 00:47 | XMS_ITS | Encounter Summary ---
Author Organization [facility] Address [facility] [place] [address] Care Team Providers Care Tire Maintenance Technician Name Role Phone RekhaAlfredo torres Primary Care Provider [phone] Encounter Details Date Type Department Care Team (Late st Contact Info) Description 02/03/2024 [place] Message Enc [place] [id number] Moisés Bone MD Visit Follow Up Social [...] CDT Gender Identity Female 05/28/2021 5:00 AM ONLINE SERVICES MANAGER Sexual Orientation Straight 04/30/2021 9: 48 AM ONLINE SERVICES MANAGER documented as of this encounter Functional Status * RETIRED Are you deaf or do you have serious difficulty hearing Answer Date of Assessment Author Status No 06/06/2020 2:18 PM ONLINE SERVICES MANAGER Activ e * RETIRED Are you blind or do you have serious difficulty seeing, even when wearing glasses? Answer Date of Assessment Author Status No 06/06/2020 2:18 PM ONLINE SERVICES MANAGER Activ e * Do you have serious difficulty walking or climbing stairs? Answer Date of Assessment Author Status No 06/06/2020 2:18 PM ONLINE SERVICES MANAGER Bhavna Osborn RN Active * Do [...] on filedocumented in this encounter Care Teams Tire Maintenance Technician Relationship Specialty Start Date End Date Alfredo Schuler DO [address] [place] [address] PCP - General FAMILY PRACTICE 01/02/21 documented as of this encounter
--- OUTSIDE RECORDS SUMMARY | 2025-03-27 00:47 | XMS_ITS | Encounter Summary ---
Author Organization [facility] Address [facility] [place] [address] Care Team Providers Care Section Laborer Name Role Phone RekhaAlfredo torres Primary Care Provider Encounter Details Date Type Department Care Team (Late st Contact Info) Description 09/23/[address] [place] [address] Terrell Lees MD [address] [place] [address] Visit Follow Up Social History Tobacco Use [...] CDT Gender Identity Female 05/28/2021 5:00 AM SUPERVISOR ELECTRONICS INSPECTION Sexual Orientation Straight 04/30/2021 9: 48 AM SUPERVISOR ELECTRONICS INSPECTION COVID-19 Exposure Response Date Recorded In the last 10 days, have yo u been in contact with someone who was confirmed or suspected to have Coronavirus/COVID-19? No / Unsure 09/23/2022 8:30 AM CDT documented as of this encounter Functional Status * RETIRED Are you deaf or do you have serious difficulty hearing Answer Date of Assessment Author Status No 06/06/2020 2:18 PM SUPERVISOR ELECTRONICS INSPECTION Activ e * RETIRED Are you blind or do you have serious difficulty seeing, even when wearing glasses? Answer Date of Assessment Author Status No 06/06/2020 2:18 PM SUPERVISOR ELECTRONICS INSPECTION Activ e * Do you have serious [...] on filedocumented in this encounter Care Teams Section Laborer Relationship Specialty Start Date End Date Alfredo Schuler DO [facility] [place] [address] PCP - General FAMILY PRACTICE 01/02/21 documented as of this encounter
--- OUTSIDE RECORDS SUMMARY | 2025-03-27 00:47 | XMS_ITS | Encounter Summary ---
Author Organization [facility] Address [facility] [place] [address] Care Team Providers Care Product Manager E Commerce Name Role Phone RekhaAlfredo torres Primary Care Provider [phone] Encounter Details Date Type Department Care Team (Late st Contact Info) Description 05/12/2023 [facility] Message Enc [facility] [address] Terrell Lees MD [address] [place] [address] Visit Follow Up Social History Tobacco Use [...] CDT Gender Identity Female 05/28/2021 5:00 AM POLICE LIAISON Sexual Orientation Straight 04/30/2021 9 :48 AM POLICE LIAISON documented as of this encounter Functional Status * RETIRED Are you deaf or do you have serious difficulty hearing Answer Date of Assessment Author Status No 06/06/2020 2:18 PM POLICE LIAISON Activ e * RETIRED Are you blind or do you have serious difficulty seeing, even when wearing glasses? Answer Date of Assessment Author Status No 06/06/2020 2:18 PM POLICE LIAISON Activ e * Do you have serious [...] on filedocumented in this encounter Care Teams Product Manager E Commerce Relationship Specialty Start Date End Date Alfredo Schuler DO [facility] [place] [address] PCP - General FAMILY PRACTICE 01/02/21 documented as of this encounter
--- OUTSIDE RECORDS SUMMARY | 2025-03-27 00:47 | XMS_ITS | Clinical Summary ---
Author Organization [facility] Address [facility] [place] [address] Care Team Providers Care Outside Parts Salesman Name Role Phone GangaAlfredo Primary Care Provider [phone] Allergies Active Allergy Reactions Criticality Noted Date [...] Encounters Date Type Department Care Team Description 03/24/2025 2:40 PM ROUTE AGENT - 03/24/2025 11:59 PM ROUTE AGENT Hospital Encounter [facility] [place] [address] Geovany Tejada MD Arrived Discharge Disposition: Home or Self Care (Routine Discharge) 03/24/2025 Orders Only [facility] [address] [place] [address] Geovany Tejada MD 03/24/2025 Travel from Last 3 Months Family History Medical [...] Former Cigarettes 0.3 2 2 000 - 2001 Smokeless Tobacco: Never Alcohol Use Standard Drinks/Week Comments Yes 0 (1 standard drink = 0.6 oz pur e alcohol) socially Comments No Sex and Gender Information Value Date Recorded Sex Assigned at Not on file Legal Sex Female 9:35 PM CDT Gender Identity Female 05/28/2021 5:00 AM ROUTE AGENT Sexual Orientation Straight 04/30/2021 9: 48 AM ROUTE AGENT Last Filed Vital Signs Vital Sign Reading [...] Colorectal Cancer Screening Colonoscopy (10 Years) 1971 Kidney Health Evaluation 1971 Annual Physical 1974 Diabetes: Retinopathy Eye Exam 1989 Hepatitis C 1989 Hepatitis B Vaccines (1 of 3 - 19+ 3-dose series) 1990 Cervical Cancer Screening Pap with HPV Testing (Age 30 to 64) Every 5 Years 2001 Pneumococcal Vaccine: 50+ Years (2 of 2 - PCV) 05/30/2015 05/30/2014 Mammogram Screening 03/24/2021 03/24/2019 Zoster Vaccines (1 of 2) 2021 Hemoglobin A1C 10/06/2022 04/07/2022, 01/18, 05/05/2017, Additional history exists Lipid Panel 04/07/2023 04/07/2022, 01/18, 09/28/2017, Additional history exists Cervical Cancer Screening Pap Smear (Age 30 to 64) Every 3 Years 06/26/2023 06/25/2020 Cervical Cancer Screening with HPV 06/26/2023 COVID-19 Vaccine ( season) 2024 10/25/2020, 09/26/2020 Influenza Adult (#1) 2025 12/30/2018, 02/17/2018, 05/08/2015 DTaP, Tdap and Td Vaccines (2 - Td or Tdap) 04/12/2026 04/12/2016, 01/18/2010 Hepatitis A Vaccines Aged Out No long er eligible based on patient's age to complete this topic Meningococcal B Vaccine Aged Out No l onger eligible based on patient's age to complete this topic Meningococcal Vaccine Aged Out No rick kelley eligible based on patient's age to complete this topic RSV Immunizations Under 20 Months Aged Out No longer eligible based on patient's age to complete this topic Medical Devices Implanted Type Area Muffler Tender Device Identifier Shelf Expiration Date Model / Serial / Lot Stimulator Lead-07/04/2022 Implanted:Qty: 2 on 07/04/2022 Lead Implant Spine Thoracic [employer] CARDIAC RHYTHM AND HEART FAILURE - DIV M [id number] / / Description:2 LEADS Stimulator Implant- [id number] Implanted:Qty: 1 on 07/04/2022 Stimulator Implant [employer] CARDIAC RHYTHM AND HEART FAILURE - DIV M [id number] / [id number] / Description:MR Conditional a t 1.5 T only, Should be full body eligible but need remote to check, need remote to turn off stimulation, Normal DELROY, Max 30 minutes scan time in 90 minute window Explanted Type Area Muffler Tender Device Identifier Shelf Expiration Date Model / Serial / Lot Stefan Chacon 6.0mm - [id number] Explanted:Qty: 1 on 09/21/2019 at [facility] [employer] [facility] [id number] / / Procedures Procedure Name Priority Date/Time Associated Diagnosis Comments BASIC METABOLIC PANEL Routine 03/24/2025 3:00 PM ROUTE AGENT Diabetes (CMS/HCC HHS/HCC) Adrenal insufficiency (HHS/HCC) LIPID PANEL Routine 04/07/2022 9:49 AM ROUTE AGENT Type 2 diabetes mellitus with hyperglycemia Hypothyroidism, unspecified HEMOGLOBIN, GLYCOSYLATED Routine 04/07/2022 9:49 AM ROUTE AGENT Type 2 diabetes mellitus with hyperglycemia Hypothyroidism, unspecified CYTOPATH CERV/VAG THIN LAYER Routine 06/25/2020 1:36 PM ROUTE AGENT MG SCREENING W GUILLERMO RIO DIGI Routine 03/24/2019 9:16 AM ROUTE AGENT Screening for breast cancer from Last 3 Months or Most Recently Relevant to Health Maintenance Results * (ABNORMAL) BASIC METABOLIC PANEL (03/24/2025 3:00 PM ROUTE AGENT) SODIUM S/P/B 141 136 - 145 MMOL/L 03/24/2025 3:16 PM [facility] POTASSIUM S/P/B 3.9 3.5 - 5.1 MMOL/L 03/24/2025 3:16 PM [facility] CHLORIDE S/P/B 103 98 - 107 MMOL/L 03/24/2025 3:16 PM [facility] CO2 28.1 21.0 - 32.0 MMOL/L 03/24/2025 3:16 PM [facility] GLUCOSE 169(H) 70 - 99 MG/DL 03/24/2025 3:16 PM [facility] Comment: FASTING GLUCOSE 100 TO 125 MG/DL IS CONSISTENT WITH IMPAIRED FASTING GLUCOSE. FASTING GLUCOSE >125 MG/DL IS CONSISTENT WITH DIABETES. RANDOM GLUCOSE >200 MG/DL WITH HYPERGLYCEMIC SYMPTOMS IS CONSISTENT WITH DIABETES. PER ADA GUIDELINES BUN 18 6 - 24 MG/DL 03/24/2025 3:16 PM ROUTE AGENT [facility] CREATININE S/P/B 0.91 0.55 - 1.02 MG/DL 03/24/2025 3:16 PM [facility] CALCIUM S/P/B 9.6 8.4 - 10.5 MG/DL 03/24/2025 3:16 PM [facility] ANION GAP 9.9 5.0 - 15.0 MMOL/L 03/24/2025 3:16 PM [facility] OSMOLALITY (CALC) 298 MOSM/KG 025 3:16 PM [facility] Comment:REFERENCE RANGE NOT ESTABLISHED GFR ESTIMATE 75(L) >89 ML/MIN/1. 73 M2 03/24/2025 3:16 PM [facility] GFR NOTES GFR REFERENCE S: 03/24/2025 3:16 PM [facility] Comment: THE ESTIMATED GFR IS CALCULATED [...] BLOOD SPECIMEN / Unknown 03/24/2025 3:00 PM ROUTE AGENT us Geovany Tejada MD LABORATORY Final Result [facility] [address] [place] [address], * (ABNORMAL) HEMOGLOBIN, GLYCOSYLATED (04/07/2022 9:49 AM ROUTE AGENT) HGB A1C 5.8(H) <5.7 % 04/07/2022 10:35 AM ROUTE AGENT [facility] Comment: 5.7 TO 6.4% INCREASED RISK OF DIABETES > OR = 6.5% CONSISTENT WITH DIABETES PER ADA GUIDELINES ESTIMATED AVG GLUCOSE 120 70 - 140 MG/DL 04/07/2022 10:35 AM ROUTE AGENT [facility] 04/07/2022 9:49 AM ROUTE AGENT Joy Steiner MD LABORATORY Final Result [facility] [address] [place] [address], * LIPID PANEL (04/07/2022 9:49 AM ROUTE AGENT) CHOLESTEROL 149 <200 MG/DL 04/07/2022 10:29 AM [facility] Comment: THE NATIONAL LIPID ASSOCIATION AND THE NATIONAL CHOLESTEROL EDUCATION PROGRAM (NCEP) HAVE SET THE FOLLOWING GUIDELINES FOR TOTAL CHOLESTEROL IN ADULTS AGES 18 AND UP. DESIRABLE: <200 BORDERLINE HIGH: 200-239 HIGH: > OR = 240 TRIGLYCERIDES 112 <150 MG/DL 04/07/2022 10:29 AM ROUTE AGENT [facility] Comment: THE NATIONAL LIPID ASSOCIATION AND THE NATIONAL CHOLESTEROL EDUCATION PROGAM (NCEP) HAVE SET THE FOLLOWING GUIDELINES FOR TRIGLYCERIDES IN ADULTS AGES 18 AND UP. NORMAL: <150 BORDERLINE HIGH: 150 TO 199 HIGH: 200 TO 499 VERY HIGH: >499 HDL 71 >49 MG/DL 04/07/2022 10:29 AM ROUTE AGENT [facility] Comment: THE NATIONAL LIPID ASSOCIATION AND THE NATIONAL CHOLESTEROL EDUCATION PROGAM (NCEP) HAVE SET THE FOLLOWING GUIDELINES FOR HDL CHOLESTEROL IN ADULTS AGES 18 AND UP. MALES: >39 FEMALES: >49 LDL-C 56 <100 MG/DL 04/07/2022 10:29 AM ROUTE AGENT [facility] Comment: THE NATIONAL LIPID ASSOCIATION AND THE NATIONAL CHOLESTEROL EDUCATION PROGAM (NCEP) HAVE SET THE FOLLOWING GUIDELINES FOR LDL CHOLESTEROL IN ADULTS AGES 18 AND UP. DESIRABLE: <100 ABOVE DESIRABLE: 100 TO 129 BORDERLINE HIGH: 130 TO 159 HIGH: 160 TO 189 VERY HIGH: >189 VLDL CALCULATION 22 MG/DL 04/07/20 22 10:29 AM ROUTE AGENT [facility] Comment:REFERENCE RANGE NOT ESTABLISHED CHOL/HDL RATIO 2.1 04/07/2022 10:29 AM ROUTE AGENT [facility] Comment:REFERENCE RANGE NOT ESTABLISHED LDL/HDL 0.8 04/07/2022 10:29 AM ROUTE AGENT [facility] Comment:REFERENCE RANGE NOT ESTABLISHED NON HDL CHOLESTEROL 78 MG/DL 04/07/2022 10:29 AM ROUTE AGENT [facility] Comment:REFERENCE RANGE NOT ESTABLISHED 04/07/2022 9:49 AM ROUTE AGENT us Joy Steiner MD LABORATORY Final Result [facility] [address] [place] [address], * Cytopath Cerv/Vag Thin Layer (06/25/2020 1:36 PM ROUTE AGENT) THIN PREP PAP [address] [address] Department of Pathology Pathology Report CERVICAL/VAGINAL PAP SMEAR REPORT Name: RORO BA Age: 12 1970 (Age: 50) Location: [facility] Sex: F Collected Date: 06/25/2020 Hospital #: [id number] Date Received: 06/27/2020 Date Reported: 07/02/2020 Provider: PATRICIA MCGINNIS INTERPRETATION CERVICAL/ENDOCERVICA L: SATISFACTORY FOR EVALUATION. [...] Z12.4 SCREENING ABNORMAL/POST MENOPAUSAL BLEEDING PAP AND HARDWARE DEVELOPER SURGICAL HISTORY - UNKNOWN ThinPrep Pap Test [...] is not effective in detecting cervical adenocarcinoma. [facility] 06/25/2020 1:36 PM ROUTE AGENT 06/27/2020 1:36 PM ROUTE AGENT Comment:CERVICAL/ENDOCERVICA L us Patricia Coto MD PATHOLOGY/CYTOLOGY ORDERABLES Final Result Performing Organization Address City/State/[facility] Co de Phone Number [facility] [address] [place] [address], [place] [phone] [facility] [address] [place] [address], [place] [phone] * MG SCREENING W GUILLERMO ELLER (03/24/2019 9:16 AM ROUTE AGENT) Anatomical Region Laterality Modality Breast Bilateral Mammography 03/28/2019 2:57 PM ROUTE AGENT Impressions 03/28/2019 2:58 PM ROUTE AGENT IMPRESSION: Moderately dense breasts. No mammographic evidence of malignancy. Recommendation: 1: Routine screening mammogram Bilateral in 1 Year Assessment: ACR BI-RADS Category 2 - Benign. Interpreted By: Harish Hernandez, 03/28/2019 2:57 PM Narrative 03/28/2019 2:58 PM ROUTE AGENT Examination: Digital screening mammogram with CAD. Clinical [...] Most Recently Relevant to Health Maintenance Insurance [facility] Advance Directives * Full Code (Latest Code Status on File) Date Activated Date Inactivated Comments 06/06/2020 2:31 PM 06/08/2020 6:23 PM Care Teams Outside Parts Salesman Relationship Specialty Start Date End Date Alfredo Schuler DO [address] [place] [address] PCP - General FAMILY PRACTICE 01/02/21
--- OUTSIDE RECORDS SUMMARY | 2025-03-27 00:47 | XMS_ITS | Encounter Summary ---
Author Organization [facility] Address [facility] [place] [address] Care Team Providers Care Embedded Firmware Engineer Name Role Phone RekhaAlfredo torres Primary Care Provider [phone] Encounter Details Date Type Department Care Team (Late st Contact Info) Description 01/08/2023 LinkedIn Message [place] [address] Terrell Lees MD [address] [place] [address] Visit Follow Up Social History Tobacco Use [...] CDT Gender Identity Female 05/28/2021 5:00 AM SHOT POLISHER Sexual Orientation Straight 04/30/2021 9 :48 AM SHOT POLISHER documented as of this encounter Functional Status * RETIRED Are you deaf or do you have serious difficulty hearing Answer Date of Assessment Author Status No 06/06/2020 2:18 PM SHOT POLISHER Activ e * RETIRED Are you blind or do you have serious difficulty seeing, even when wearing glasses? Answer Date of Assessment Author Status No 06/06/2020 2:18 PM SHOT POLISHER Activ e * Do you have serious [...] on filedocumented in this encounter Care Teams Embedded Firmware Engineer Relationship Specialty Start Date End Date Alfredo Schuler [place] [facility] [place] [address] PCP - General FAMILY PRACTICE 01/02/21 documented as of this encounter
--- OUTSIDE RECORDS SUMMARY | 2025-03-27 00:47 | XMS_ITS | Encounter Summary ---
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 Name Role Phone RekhaAlfredo torres Primary Care Provider [phone] Encounter Details Date Type Department Care Team (Late st Contact Info) Description 11/25/2023 [employer] Message Enc [place] [id number] Moisés Bone MD Visit Follow Up Social [...] CDT Gender Identity Female 05/28/2021 5:00 AM CPC Sexual Orientation Straight 04/30/2021 9: 48 AM CPC documented as of this encounter Functional Status * RETIRED Are you deaf or do you have serious difficulty hearing Answer Date of Assessment Author Status No 06/06/2020 2:18 PM CPC Activ e * RETIRED Are you blind or do you have serious difficulty seeing, even when wearing glasses? Answer Date of Assessment Author Status No 06/06/2020 2:18 PM CPC Activ e * Do you have serious difficulty walking or climbing stairs? 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
--- NOTE | 2025-03-27 07:22 | WPDHPUPDATE1 ---
History and Physical Update Update Date/Time: 03/27/25 07:22 History and Physical has been reviewed, including an updated exam of the patient. There are NO changes in the patient's condition. Risks, benefits, and alternatives have been discussed and questions answered. Patient agrees to proceed with procedure.
[2025-03-27] MEDS: ACETAMINOPHEN 500 MG TABLET 1000 MG PO (09:35)
[2025-03-27 09:43] LABS: BEDSIDEPREGUCG Negative (Negative)
[2025-03-27] MEDS: SCOPOLAMINE 1 MG PATCH 1 PATCH TRANSDERM (09:46)
--- NOTE | 2025-03-27 10:06 | WPDANESEPPF ---
Anes - Initial Pre Proc Eval Procedure: Operation Date: 03/27/25 11:00 Proposed Procedures p Image Guided Endoscopic Left Sided Medial Maxillectomy - Stephan Gomez MD Date/Time: 03/27/25 10:06 Surgeon: Stephan Gomez MD Pre Op Diagnosis: Chronic Sinusitis, Immunodeficiency Patient Data Age: 54 Gender: F Height: 1.57 m Weight: 145 kg Last Vital Signs Temp 35.9 C L 03/27/25 09:35 Pulse 99 03/27/25 09:35 Resp 16 03/27/25 09:35 BP 143/107 H 03/27/25 09:35 Pulse Ox 98 03/27/25 09:35 O2 Del Method Room Air 03/27/25 09:35 Allergies Allergy/AdvReac Type Severity Reaction Status Date / Time cefuroxime (From Ceftin) Allergy Severe Anaphylaxis Verified 03/27/25 09:46 metformin AdvReac Intermediate Diarrhea/Cr Verified 03/27/25 09:46 amping/Naus ea Home Medications ?Medication ?Instructions ?Recorded ?Confirmed ?Type albuterol sulfate 90 mcg/actuation 1 puff inhalation Q4H PRN 10/29/20 03/22/25 History aerosol inhaler Bronchospasm ergocalciferol (vitamin D2) 10 mcg 10 mcg PO DAILY 01/18/21 03/27/25 History (400 unit) tablet epinephrine 0.3 mg/0.3 mL 0.3 mg (0.3 mL) IM ONCE #2 ea 08/20/21 03/22/25 Rx injection, auto-injector fluticasone furoate 200 1 inh inhalation DAILY 07/23/22 03/22/25 History mcg-vilanterol 25 mcg/dose inhalation powder (Breo Ellipta) omeprazole 40 mg capsule,delayed See Rx Instructions .Route 01/13/25 03/22/25 Rx release .COMPLEX #60 caps atorvastatin 40 mg tablet See Rx Instructions .Route 02/08/25 03/22/25 Rx .COMPLEX #90 tabs hydrocortisone 10 mg tablet See Rx Instructions .Route 02/08/25 03/22/25 Rx .COMPLEX #270 tabs potassium chloride 10 mEq See Rx Instructions .Route 02/08/25 03/27/25 Rx tablet,extended release .COMPLEX #180 tabs venlafaxine 150 mg See Rx Instructions .Route 02/08/25 03/27/25 Rx capsule,extended release 24 hr .COMPLEX #180 caps montelukast 10 mg tablet 10 mg PO HS #90 tabs 02/23/25 03/27/25 Rx pregabalin 150 mg capsule (Lyrica) 150 mg PO BID #60 caps 03/14/25 03/27/25 Rx tirzepatide 7.5 mg/0.5 mL 7.5 mg (0.5 mL) subcut WEEKLY #2 mL 03/14/25 03/27/25 Rx subcutaneous pen injector (Jordan) mupirocin 2 % topical ointment 1 applic topical BID #44 grams 03/15/25 03/22/25 Rx (Centany) losartan 50 mg-hydrochlorothiazide See Rx Instructions .Route .COMPLEX 03/22/25 03/27/25 History 12.5 mg tablet doxycycline hyclate 100 mg capsule 100 mg PO BID #28 caps 03/23/25 Rx levothyroxine 50 mcg tablet See Rx Instructions .Route 03/23/25 03/27/25 Rx .COMPLEX #10 tabs Laboratory Tests 03/27/25 09:35 POC Urine HCG, Qual Negative (Negative) Patient hx anesthesia problems: none Family hx anesthesia problems: none Results Review: All pre-operative results and documents have been reviewed as part of the pre-operative evaluation. [facility], [facility] Past Medical History Medical History Acute bronchitis Chronic, continuous use of opioids norco x 2 years Type 2 diabetes mellitus Migraine headache MDD (major depressive disorder) Hypothyroidism [place]'s disease Chronic back pain Asthma Hypertension Surgical History Surgical History History of bariatric surgery Gastric sleeve H/O knee surgery right Social History Social History Smoking status: Never smoker Tobacco type: cigarettes Alcohol intake: never Alcohol use details: RARE Substance use: never Substance use type: does not use Lack of Transportation: No Lack of Food: Never True Current Housing: I Have Housing Concerned About Future Housing: No Difficulty Paying Gas/Electric Bills: No Difficulty Paying for Meds: No Currently Unemployed: No Education: Trade/Vocational Certificate Difficulty w/ Childcare or Family Care: No Living arrangements: with family Spiritual care concerns: No Anes - Eval Final PreProcedure Day of Procedure 03/27/25 10:06 Patient weight: super morbidly obese Heart: regular rate and rhythm Lungs: clear to auscultation Airway: Mallampati scale class III Neurological: alert and oriented Last oral intake: >/= 8 hours ASA classification: III Emergent: no Anesthetic plan: proceed Anesthesia type and monitoring: general ETT and standard monitoring Results Review: All pre-operative results and documents have been reviewed as part of the pre-operative evaluation. Informed Consent: The patient's anesthetic plan and its attendant risks and benefits were discussed with the patient/family/POA. Questions were solicited and answers provided to the satisfaction of the patient/family/POA.
[2025-03-27] MEDS: LACTATED RINGERS 1,000 ML 30 ML IV CONT ×2 (10:16→12:37)
[2025-03-27] MEDS: CLINDAMYCIN 900 MG/D5W 50 ML 900 MG/50 ML PIGGYBACK 50 MG IVPB (10:52)
[2025-03-27] MEDS: LIDO 1%/EPINEPHRINE 1:100,000 50 ML VIAL (11:11)
[2025-03-27] MEDS: OXYMETAZOLINE HCL 0.05% NAS 15 ML BTL (*BKC) 1 SPRAY NASAL (11:12)
[2025-03-27] MEDS: TOBRAMYCIN SULFATE 80 MG/2 ML VIAL 400 MG IRRIGATION (11:15)
--- NOTE | 2025-03-27 12:55 | W.PM.PROC2 ---
Procedure Note - Detailed Date of Procedure 03/27/25 Pre-op Diagnosis Chronic Sinusitis, recurrent sinusitis Post-op Diagnosis Same Procedure Performed 1. Left image guided endoscopic medial maxillectomy with tissue removal Surgeon Stephan Gomez MD Anesthesia General Indications See above Findings Edematous tissue scant purulence left maxillary sinus Description of Procedure Patient identified consent verified the preop holding area. Patient brought to the operating. Time-out performed. General anesthesia induced endotracheal tube secured patient prepped draped position procedure confirmed 2nd time-out performed. Image guidance initiated confirm left-sided viewed needle-tip Bovie protected of course setting of 15 utilized to cut the inferior turbinate posterior to the past there is valve her nasal lacrimal duct. This was confirmed with image guidance. Scissors were then used to remove the turbinate. Posterior stump cauterized with suction Bovie at a setting of 15. A flap was then created by removing the medial aspect of the medial wall of the maxillary sinus and that was flapped down. The medial wall was then removed using a combination of high-speed 30,000 rpm 15 degree choanal trees all la tipped drill. Down-biting stump rigor. Backbiter and straight through cut. I did not get into any arteries on the floor there. The flap was then rolled back over wound copiously irrigate was to be copiously irrigated out with sterile normal saline infused tobramycin. Total blood loss 27 cc. No active bleeding at the end the case. No packing. I performed all dictated portions of procedure. Care the patient back to Anesthesiology. Patient taken to PACU in good condition. Estimated Blood Loss 27 Drains No Packing No Pathology None sent Complications No immediate complications Condition Stable Disposition PACU [facility] Billing Surgery - Charge Forward: Surgery Billing
[2025-03-27] MEDS: fentaNYL CITRATE INJ (*CRX) 100 MCG/2 ML VIAL 25 MCG IV PUSH ×4 (12:58→13:16)
== END 2025-03-27 14:25 | disposition home or self-care (01) ==
PROVIDERS: Anesthesiology; PCP Family Medicine; Visit Provider Otolaryngology
PROC: (CPT 31267; principal; 2025-03-27 11:00)
DX: J32.9 Chronic sinusitis, unspecified (principal); E11.9 Type 2 diabetes mellitus without complications; E66.01 Morbid (severe) obesity due to excess calories; Z68.43 Body mass index [BMI] 50.0-59.9, adult
CPT/HCPCS: 31267; 61782; 82948; A9270; J1100; J2003; J2004; J2250; J2405; J2704; J3010; J3260; J7040; J7120